=== PATIENT | female | born 1955 | race African-American/Black ===

== ENCOUNTER 2020-06-14 07:26 | Inpatient (IN) | payer BC, OTHER ==
[~2020-06-14] VITALS: Ht 170.2 cm; Wt 78.6 kg
[2020-06-14 10:36] VITALS: BP 124/80
[2020-06-14] MEDS: Heparin 5000 units/ml inj SUBQ SCH ×2 (11:00→21:00)
[2020-06-14 11:25] LABS: APPEARANCE,URINE CLEAR; BILIRUBIN, URINE NEGATIVE (NEGATIVE); COLOR,URINE PALE YELLOW; GLUCOSE, URINE (UA) NEGATIVE (NEGATIVE); KETONES,URINE 1+ (NEGATIVE); LEUKOCYTE ESTERASE ,URINE 1+ (NEGATIVE); NITRITE,URINE NEGATIVE (NEGATIVE); PH,URINE 7 (4.5-8.0); PROTEIN,URINE NEGATIVE (NEGATIVE); UROBILINOGEN,URINE NORMAL MG/DL (0.0-1.0)
[2020-06-14 11:41] LABS: HEMATOCRIT 31.3 % (37.0-47.0); HEMOGLOBIN 10.2 G/DL (12.0-16.0); MEAN CORPUSCULAR VOLUME 87 FL (80-99); PLATELET COUNT 106 K/UL (150-450); RED BLOOD COUNT 3.59 M/UL (4.20-5.40); RED CELL DISTRIBUTION WIDTH 22.4 % (11.6-14.8); WHITE BLOOD COUNT 4.5 K/UL (4.8-10.8)
[2020-06-14 11:43] LABS: ALANINE AMINOTRANSFERASE 47 U/L (12-78); ALBUMIN 3.5 G/DL (3.4-5.0); ALBUMIN/GLOBULIN RATIO 0.8 (1.0-2.7); ALKALINE PHOSPHATASE 123 U/L (46-116); ANION GAP 11 mmol/L (5-15); ASPARTATE AMINO TRANSFERASE 52 U/L (15-37); BILIRUBIN,TOTAL 0.6 MG/DL (0.2-1.0); BLOOD UREA NITROGEN 4 mg/dL (7-18); CALCIUM 8.7 MG/DL (8.5-10.1); CARBON DIOXIDE 24 MMOL/L (21-32); CHLORIDE 90 MMOL/L (98-107); CREATININE 0.7 MG/DL (0.55-1.30); PHOSPHORUS 3.2 MG/DL (2.5-4.9); POTASSIUM 3.6 MMOL/L (3.5-5.1); SODIUM 125 MMOL/L (136-145)
[2020-06-14 12:00] VITALS: BP 126/76
--- NOTE | 2020-06-14 13:43 | Consultation ---
History of Present Illness General Date patient seen: Jun 14, 2020 Present Illness HPI 64 year old female with hx of HTN, was taken to [facility] with CC of seizures. Her initial evaluation revealed severe hyponatremia, contributing to seizures. After initial treatment, she was [place] [facility] [place]. Allergies: Coded Allergies: ASPIRIN (Verified Allergy, Unknown, 08/20/10) CODEINE (Verified Allergy, Unknown, 08/20/10) PENICILLINS (Verified Allergy, Unknown, 08/20/10) Medication History Scheduled Atenolol* (Tenormin*), 100 MG ORAL DAILY Famotidine* (Pepcid 20mg tablet*), 20 MG ORAL BID Patient History Healthcare decision maker Resuscitation status Advanced Directive on File Past Medical/Surgical History Past Medical/Surgical History: (1) History of hypertension (2) Hx of gastric bypass Review of Systems All Other Systems: negative except mentioned in HPI Physical Exam General Appearance: WD/WN Lines, tubes and drains: peripheral HEENT: normocephalic, atraumatic Neck: non-tender, normal alignment Respiratory/Chest: chest wall non-tender, lungs clear, normal breath sounds Breasts: no masses Cardiovascular/Chest: normal peripheral pulses Abdomen: normal bowel sounds Genitourinary/Rectal: normal genital exam Extremities: normal range of motion Skin Exam: normal pigmentation Last 24 Hour Vital Signs Date Time Temp Pulse Resp B/P (MAP) Pulse Ox O2 Delivery O2 Flow Rate FiO2 06/14/20 12:00 98.0 75 18 126/76 (93) 100 06/14/20 10:36 99.2 76 18 124/80 (95) 100 06/14/20 09:31 Room Air Laboratory Tests Test 06/14/20 10:45 06/14/20 11:00 White Blood Count 4.5 K/UL (4.8-10.8) L Red Blood Count 3.59 M/UL (4.20-5.40) L Hemoglobin 10.2 G/DL (12.0-16.0) L Hematocrit 31.3 % (37.0-47.0) L Mean Corpuscular Volume 87 FL (80-99) Mean Corpuscular Hemoglobin 28.5 PG (27.0-31.0) Mean Corpuscular Hemoglobin Concent 32.6 G/DL (32.0-36.0) Red Cell Distribution Width 22.4 % (11.6-14.8) H Platelet Count 106 K/UL (150-450) L Mean Platelet Volume 6.8 FL (6.5-10.1) Neutrophils (%) (Auto) % (45.0-75.0) Lymphocytes (%) (Auto) % (20.0-45.0) Monocytes (%) (Auto) % (1.0-10.0) Eosinophils (%) (Auto) % (0.0-3.0) Basophils (%) (Auto) % (0.0-2.0) Differential Total Cells Counted 100 Neutrophils % (Manual) 81 % (45-75) H Lymphocytes % (Manual) 15 % (20-45) L Monocytes % (Manual) 4 % (1-10) Eosinophils % (Manual) 0 % (0-3) Basophils % (Manual) 0 % (0-2) Band Neutrophils 0 % (0-8) Platelet Estimate Decreased L Platelet Morphology Normal Hypochromasia 1+ Anisocytosis 3+ Sodium Level 125 MMOL/L (136-145) L Potassium Level 3.6 MMOL/L (3.5-5.1) Chloride Level 90 MMOL/L (98-107) L Carbon Dioxide Level 24 MMOL/L (21-32) Anion Gap 11 mmol/L (5-15) Blood Urea Nitrogen 4 mg/dL (7-18) L Creatinine 0.7 MG/DL (0.55-1.30) Estimat Glomerular Filtration Rate > 60 mL/min (>60) Glucose Level 104 MG/DL (74-106) Calcium Level 8.7 MG/DL (8.5-10.1) Phosphorus Level 3.2 MG/DL (2.5-4.9) Magnesium Level 1.8 MG/DL (1.8-2.4) Total Bilirubin 0.6 MG/DL (0.2-1.0) Aspartate Amino Transf (AST/SGOT) 52 U/L (15-37) H Alanine Aminotransferase (ALT/SGPT) 47 U/L (12-78) Alkaline Phosphatase 123 U/L (46-116) H Troponin I 0.000 ng/mL (0.000-0.056) Total Protein 8.0 G/DL (6.4-8.2) Albumin 3.5 G/DL (3.4-5.0) Globulin 4.5 g/dL Albumin/Globulin Ratio 0.8 (1.0-2.7) L Urine Color Pale yellow Urine Appearance Clear Urine pH 7 (4.5-8.0) Urine Specific [place] 1.005 (1.005-1.035) Urine Protein Negative (NEGATIVE) Urine Glucose (UA) Negative (NEGATIVE) Urine Ketones 1+ (NEGATIVE) H Urine Blood Negative (NEGATIVE) Urine Nitrite Negative (NEGATIVE) Urine Bilirubin Negative (NEGATIVE) Urine Urobilinogen Normal MG/DL (0.0-1.0) Urine Leukocyte Esterase 1+ (NEGATIVE) H Urine RBC 0 /HPF (0 - 2) Urine WBC 0-2 /HPF (0 - 2) Urine Squamous Epithelial Cells Occasional /LPF Urine Bacteria Occasional /HPF (NONE) Microbiology Date/Time Source Procedure Growth Status 06/14/20 11:14 Nasopharynx SARS-CoV-2 RdRp Gene Assay - Final Complete Height (Feet): 5 Height (Inches): 7.00 Weight (Pounds): 162 Medications Current Medications Medications (Trade) Dose Ordered Sig/Becky Route PRN Reason Start Time Stop Time Status Last Admin Dose Admin Acetaminophen (Tylenol) 650 mg Q6H PRN ORAL For Headache,fever,mild pain 06/14/20 10:00 07/14/20 09:59 Heparin Sodium (Porcine) (Heparin 5000 units/ml) 5,000 units EVERY 12 HOURS SUBQ 06/14/20 11:00 07/29/20 10:59 Potassium Chloride/Sodium Chloride 1,000 ml @ 75 mls/hr [id number] IV 06/14/20 14:00 07/14/20 13:59 Assessment/Plan Problem List: (1) New onset seizure ICD Codes: R56.9 - Unspecified convulsions SNOMED: 25226520 (2) Acute encephalopathy ICD Codes: G93.40 - Encephalopathy, unspecified SNOMED: 86604234, 597034684 (3) Hyponatremia ICD Codes: E87.1 - Hypo-osmolality and hyponatremia SNOMED: 54621345 Assessment/Plan: NS or 3%S, seizure precaution neuro evaluation hyponatremia w/u check Na in am dvt prophylaxis. Emma Mcfarlane MD Jun 14, 2020 13:43
[2020-06-14] MEDS: NS w/KCl 20mEq 1000ml 1,000 ML IV SCH (13:44)
[2020-06-14] MEDS ORDERED: Nitroglycerin Subl 0.4mg tab SL PRN (13:45)
[2020-06-14] MEDS ORDERED: Miralax 17gm pkt ORAL PRN (13:45)
[2020-06-14] MEDS ORDERED: LORazepam Inj 2mg/ml 1ml IV PRN ×2 (13:45)
[2020-06-14] MEDS ORDERED: Mylanta II UD 30ml ORAL PRN (13:45)
[2020-06-14 15:12] LABS: APPEARANCE,URINE CLEAR; BILIRUBIN, URINE NEGATIVE (NEGATIVE); COLOR,URINE PALE YELLOW; GLUCOSE, URINE (UA) NEGATIVE (NEGATIVE); KETONES,URINE 1+ (NEGATIVE); LEUKOCYTE ESTERASE ,URINE 2+ (NEGATIVE); NITRITE,URINE NEGATIVE (NEGATIVE); PH,URINE 7 (4.5-8.0); PROTEIN,URINE NEGATIVE (NEGATIVE); UROBILINOGEN,URINE NORMAL MG/DL (0.0-1.0)
[2020-06-14 16:00] VITALS: BP 134/71
[2020-06-14 16:23] LABS: ANION GAP 10 mmol/L (5-15); BLOOD UREA NITROGEN 6 mg/dL (7-18); CALCIUM 8.8 MG/DL (8.5-10.1); CARBON DIOXIDE 23 MMOL/L (21-32); CHLORIDE 94 MMOL/L (98-107); CREATININE 0.8 MG/DL (0.55-1.30); POTASSIUM 3.2 MMOL/L (3.5-5.1); SODIUM 127 MMOL/L (136-145)
[2020-06-14] MEDS: Triamterene/Hctz 37.5/25 cap ORAL SCH (17:07)
--- NOTE | 2020-06-14 18:35 | History & Physical ---
History and Physical History & Physicial Dictated for Int Med-Dr Edward no. [id number]. Ramos Lou MD Jun 14, 2020 18:35
--- NOTE | 2020-06-14 19:44 | History and Physical Report ---
DATE OF ADMISSION: 06/14/2020 CHIEF COMPLAINT: Patient is a 64-year-old female, who presents with a chief complaint of seizure. HISTORY OF PRESENT ILLNESS: Patient denies any medical history. Patient apparently had an unwitnessed seizure, which occurred while patient was watching TV. Patient initially presented to [facility] emergency room. Patient is transferred to [facility] for insurance purposes. Patient is admitted with new-onset seizure disorder. REVIEW OF SYSTEMS: Unable to assess secondary to patient's mental status. PAST MEDICAL HISTORY: Patient denies. CURRENT MEDICATIONS: Denies. ALLERGIES: To aspirin, codeine, and penicillin. PAST SURGICAL HISTORY: Patient denies. SOCIAL HISTORY: Patient is a . Patient lives alone. Patient denies tobacco or alcohol use. PHYSICAL EXAMINATION: VITAL SIGNS: Temperature 97.4, respirations 17, pulse 102, blood pressure 139/72. GENERAL: Patient is well-developed, well-nourished female, in no apparent distress. HEENT: Eyes, pupils are equal and responsive to light and accommodation. Extraocular movements are intact. NECK: Supple without lymphadenopathy. CHEST: Lungs are clear to auscultation bilaterally without wheezes or rales. CARDIOVASCULAR: Regular rhythm and rate. S1, S2 are normal without murmurs, rubs, or gallops. ABDOMEN: Soft, nontender, nondistended. Positive bowel sounds. No evidence of hepatosplenomegaly. Currently, no rebound or guarding noted. EXTREMITIES: Negative for clubbing, cyanosis, or edema. RECTAL/GENITAL: Not performed. NEUROLOGICAL: Cranial nerves II through XII grossly intact without focal deficits. Motor strength is 5/5 bilaterally. Deep tendon reflexes are 2+ plantar. LABORATORY STUDIES: WBC 3.8, hemoglobin 10.5, hematocrit 32.0, platelets 118,000. Sodium 120, potassium 3.8, chloride 84, CO2 18, BUN 3, creatinine 0.73, glucose 149. A CT of the brain was reported as no acute masses or hemorrhage. ASSESSMENT: This is a 64-year-old female: 1. New-onset seizure. 2. Hyponatremia. TREATMENT: 1. New-onset seizure. Patient has been placed empirically on intravenous lorazepam for seizure. An initial phenytoin level was negative. A Neurology consultation has been obtained with Dr. Andre Sesay. 2. Hyponatremia. Reason for hyponatremia is unknown. Patient has been started empirically on normal saline intravenously. We will follow recommendations of Nephrology, Dr. Villa. Ramos Lou M.D. DR: CARLOS JOB#: [id number] CC:
[2020-06-14 20:00] VITALS: BP 127/76
[2020-06-14 23:48] VITALS: BP 128/73
[2020-06-15 04:00] VITALS: BP 132/70
[2020-06-15] MEDS: NS w/KCl 20mEq 1000ml 1,000 ML IV SCH ×2 (05:30→15:48)
[2020-06-15 07:15] LABS: HEMATOCRIT 29.3 % (37.0-47.0); HEMOGLOBIN 9.5 G/DL (12.0-16.0); MEAN CORPUSCULAR VOLUME 89 FL (80-99); PLATELET COUNT 85 K/UL (150-450); RED BLOOD COUNT 3.29 M/UL (4.20-5.40); RED CELL DISTRIBUTION WIDTH 22.6 % (11.6-14.8); WHITE BLOOD COUNT 4.1 K/UL (4.8-10.8)
[2020-06-15 07:20] LABS: ALANINE AMINOTRANSFERASE 41 U/L (12-78); ALBUMIN 3.3 G/DL (3.4-5.0); ALBUMIN/GLOBULIN RATIO 0.8 (1.0-2.7); ALKALINE PHOSPHATASE 101 U/L (46-116); ANION GAP 10 mmol/L (5-15); ASPARTATE AMINO TRANSFERASE 82 U/L (15-37); BILIRUBIN,TOTAL 0.5 MG/DL (0.2-1.0); BLOOD UREA NITROGEN 5 mg/dL (7-18); CALCIUM 8.2 MG/DL (8.5-10.1); CARBON DIOXIDE 23 MMOL/L (21-32); CHLORIDE 100 MMOL/L (98-107); CREATININE 0.7 MG/DL (0.55-1.30); POTASSIUM 3.6 MMOL/L (3.5-5.1); SODIUM 132 MMOL/L (136-145)
[2020-06-15 08:00] VITALS: BP 117/79
[2020-06-15] MEDS: Heparin 5000 units/ml inj SUBQ SCH ×2 (08:16→21:00)
[2020-06-15] MEDS: Triamterene/Hctz 37.5/25 cap ORAL SCH (08:16)
[2020-06-15 12:07] VITALS: BP 127/52
--- NOTE | 2020-06-15 13:28 | Pulmonology Progress Note ---
Subjective ROS Limited/Unobtainable: No Constitutional: Reports: no symptoms HEENT: Repors: no symptoms Respiratory: Reports: no symptoms Allergies: Coded Allergies: ASPIRIN (Verified Allergy, Unknown, 08/20/10) CODEINE (Verified Allergy, Unknown, 08/20/10) PENICILLINS (Verified Allergy, Unknown, 08/20/10) Objective Last 24 Hour Vital Signs Date Time Temp Pulse Resp B/P (MAP) Pulse Ox O2 Delivery O2 Flow Rate FiO2 06/15/20 12:07 98.1 84 17 127/52 (77) 97 06/15/20 09:00 Room Air 06/15/20 08:16 84 117/79 06/15/20 08:00 98.1 84 17 117/79 (92) 97 06/15/20 04:00 98.7 88 20 132/70 (90) 97 06/14/20 23:48 98.1 83 20 128/73 (91) 99 06/14/20 21:00 Room Air 06/14/20 20:00 98.1 80 20 127/76 (93) 100 06/14/20 17:07 81 134/71 06/14/20 16:00 98.5 81 20 134/71 (92) 100 Intake and Output 06/14/20 06/15/20 19:00 07:00 Intake Total 300 ml 1650 ml Balance 300 ml 1650 ml Intake Oral 1200 ml IV Total 300 ml 450 ml # Voids 4 # Bowel Movements 3 General Appearance: WD/WN HEENT: normocephalic, atraumatic Respiratory: lungs clear, normal breath sounds Breasts: no masses Cardiovascular: regular rhythm Abdomen: normal bowel sounds, soft, non tender Genitourinary: normal external genitalia Extremities: no clubbing Skin: no rash Microbiology Date/Time Source Procedure Growth Status 06/14/20 11:14 Nasopharynx SARS-CoV-2 RdRp Gene Assay - Final Complete Laboratory Tests 06/14/20 14:00: Urine Color Pale yellow, Urine Appearance Clear, Urine pH 7, Urine Specific [place] 1.005, Urine Protein Negative, Urine Glucose (UA) Negative, Urine Ketones 1+H, Urine Blood Negative, Urine Nitrite Negative, Urine Bilirubin Negative, Urine Urobilinogen Normal, Urine Leukocyte Esterase 2+H, Urine RBC 0-2 , Urine WBC 2-4, Urine Squamous Epithelial Cells Occasional, Urine Bacteria Occasional, Urine Osmolality 151L, Urine Random Sodium 50 06/14/20 15:45: Sodium Level 127L, Potassium Level 3.2L, Chloride Level 94L, Carbon Dioxide Level 23, Anion Gap 10, Blood Urea Nitrogen 6L, Creatinine 0.8, Estimat Glomerular Filtration Rate > 60, Glucose Level 109H, Calcium Level 8.8 06/15/20 06:10: Sodium Level 132L, Potassium Level 3.6, Chloride Level 100, Carbon Dioxide Level 23, Anion Gap 10, Blood Urea Nitrogen 5L, Creatinine 0.7, Estimat Glomerular Filtration Rate > 60, Glucose Level 93, Calcium Level 8.2L, White Blood Count 4.1L, Red Blood Count 3.29L, Hemoglobin 9.5L, Hematocrit 29.3L, Mean Corpuscular Volume 89, Mean Corpuscular Hemoglobin 28.8, Mean Corpuscular Hemoglobin Concent 32.4, Red Cell Distribution Width 22.6H, Platelet Count 85L, Mean Platelet Volume 6.7, Neutrophils (%) (Auto) , Lymphocytes (%) (Auto) , Monocytes (%) (Auto) , Eosinophils (%) (Auto) , Basophils (%) (Auto) , Differential Total Cells Counted 100, Neutrophils % (Manual) 53, Lymphocytes % ( Manual) 38, Monocytes % (Manual) 6, Eosinophils % (Manual) 3, Basophils % ( Manual) 0, Band Neutrophils 0, Platelet Estimate DecreasedL, Platelet Morphology Normal, Hypochromasia 2+, Anisocytosis 3+, Magnesium Level 1.9, Total Bilirubin 0.5, Aspartate Amino Transf (AST/SGOT) 82H, Alanine Aminotransferase (ALT/SGPT) 41, Alkaline Phosphatase 101, Total Protein 7.4, Albumin 3.3L, Globulin 4.1, Albumin/Globulin Ratio 0.8L Current Medications Medications (Trade) Dose Ordered Sig/Becky Route PRN Reason Start Time Stop Time Status Last Admin Dose Admin Acetaminophen (Tylenol) 650 mg Q4H PRN ORAL Temp >100.5 06/14/20 13:45 07/14/20 13:44 Acetaminophen (Tylenol) 650 mg Q6H PRN ORAL headache & mild pain 06/14/20 14:00 07/14/20 09:59 06/14/20 18:01 Al Hydroxide/Mg Hydroxide (Mylanta II) 30 ml Q6H PRN ORAL Dyspepsia 06/14/20 13:45 07/14/20 13:44 Atenolol (Tenormin) 100 mg DAILY ORAL 06/14/20 14:45 07/14/20 14:44 06/15/20 08:16 Diphenhydramine HCl (Benadryl) 25 mg Q6H PRN ORAL Itching/Pruritis 06/14/20 13:45 07/14/20 13:44 Famotidine (Pepcid) 20 mg BID ORAL 06/14/20 18:00 09/12/20 17:59 06/15/20 08:16 Heparin Sodium (Porcine) (Heparin 5000 units/ml) 5,000 units EVERY 12 HOURS SUBQ 06/14/20 11:00 07/29/20 10:59 Loperamide HCl (Imodium) 4 mg Q4H PRN ORAL Diarrhea 06/14/20 13:45 07/14/20 13:44 Lorazepam (Ativan 2mg/ml 1ml) 0.5 mg Q4H PRN IV For Anxiety 06/14/20 13:45 06/21/20 13:44 Lorazepam (Ativan 2mg/ml 1ml) 1 mg Q4H PRN IV seizures 06/14/20 13:45 06/21/20 13:44 Morphine Sulfate (Morphine Sulfate) 2 mg Q6H PRN IVP Moderate Pain (Pain Scale 4-6) 06/14/20 13:46 06/21/20 13:45 Nitroglycerin (Ntg) 0.4 mg Q5M PRN SL Prn Chest Pain 06/14/20 13:45 07/14/20 13:44 Ondansetron HCl (Zofran) 4 mg Q6H PRN IVP Nausea & Vomiting 06/14/20 13:45 07/14/20 13:44 06/14/20 17:06 Polyethylene Glycol (Miralax) 17 gm DAILYPRN PRN ORAL Constipation 06/14/20 13:45 07/14/20 13:44 Potassium Chloride/Sodium Chloride 1,000 ml @ 75 mls/hr [id number] IV 06/14/20 14:00 07/14/20 13:59 06/15/20 05:30 Temazepam (Restoril) 15 mg HSPRN PRN ORAL Insomnia 06/14/20 13:45 06/21/20 13:44 06/14/20 22:56 Triamterene/HCTZ (Dyazide) 1 cap DAILY ORAL 06/14/20 14:45 07/14/20 14:44 06/15/20 08:16 Assessment/Plan Problems: (1) New onset seizure (2) Acute encephalopathy (3) Hyponatremia (4) Anemia Assessment/Plan feels better today Na is better seizure precaution neuro evaluation hyponatremia w/u check Na in am dvt prophylaxis. Emma Mcfarlane MD Jun 15, 2020 13:28
[2020-06-15 16:00] VITALS: BP 125/62
[2020-06-15 17:06] LABS: LACTATE DEHYDROGENASE 408 U/L (81-234)
[2020-06-15 17:45] LABS: % IRON SATURATION 8 % (15-50); IRON 27 ug/dL (50-175); TOTAL IRON BINDING CAPACITY 338 ug/dL (250-450)
--- NOTE | 2020-06-15 19:58 | Internal Med Progress Note ---
Subjective Physician Name Orville Edward Attending Physician Orville Edward MD Current Medications Medications (Trade) Dose Ordered Sig/Becky Route PRN Reason Start Time Stop Time Status Last Admin Dose Admin Acetaminophen (Tylenol) 650 mg Q4H PRN ORAL Temp >100.5 06/14/20 13:45 07/14/20 13:44 Acetaminophen (Tylenol) 650 mg Q6H PRN ORAL headache & mild pain 06/14/20 14:00 07/14/20 09:59 06/14/20 18:01 Al Hydroxide/Mg Hydroxide (Mylanta II) 30 ml Q6H PRN ORAL Dyspepsia 06/14/20 13:45 07/14/20 13:44 Atenolol (Tenormin) 100 mg DAILY ORAL 06/14/20 14:45 07/14/20 14:44 06/15/20 08:16 Diphenhydramine HCl (Benadryl) 25 mg Q6H PRN ORAL Itching/Pruritis 06/14/20 13:45 07/14/20 13:44 Famotidine (Pepcid) 20 mg BID ORAL 06/14/20 18:00 09/12/20 17:59 06/15/20 17:29 Heparin Sodium (Porcine) (Heparin 5000 units/ml) 5,000 units EVERY 12 HOURS SUBQ 06/14/20 11:00 07/29/20 10:59 Loperamide HCl (Imodium) 4 mg Q4H PRN ORAL Diarrhea 06/14/20 13:45 07/14/20 13:44 Lorazepam (Ativan 2mg/ml 1ml) 0.5 mg Q4H PRN IV For Anxiety 06/14/20 13:45 06/21/20 13:44 Lorazepam (Ativan 2mg/ml 1ml) 1 mg Q4H PRN IV seizures 06/14/20 13:45 06/21/20 13:44 Morphine Sulfate (Morphine Sulfate) 2 mg Q6H PRN IVP Moderate Pain (Pain Scale 4-6) 06/14/20 13:46 06/21/20 13:45 Nitroglycerin (Ntg) 0.4 mg Q5M PRN SL Prn Chest Pain 06/14/20 13:45 07/14/20 13:44 Ondansetron HCl (Zofran) 4 mg Q6H PRN IVP Nausea & Vomiting 06/14/20 13:45 07/14/20 13:44 06/14/20 17:06 Polyethylene Glycol (Miralax) 17 gm DAILYPRN PRN ORAL Constipation 06/14/20 13:45 07/14/20 13:44 Potassium Chloride/Sodium Chloride 1,000 ml @ 75 mls/hr [id number] IV 06/14/20 14:00 07/14/20 13:59 06/15/20 15:48 Temazepam (Restoril) 15 mg HSPRN PRN ORAL Insomnia 06/14/20 13:45 06/21/20 13:44 06/14/20 22:56 Triamterene/HCTZ (Dyazide) 1 cap DAILY ORAL 06/14/20 14:45 07/14/20 14:44 06/15/20 08:16 Allergies: Coded Allergies: ASPIRIN (Verified Allergy, Unknown, 08/20/10) CODEINE (Verified Allergy, Unknown, 08/20/10) PENICILLINS (Verified Allergy, Unknown, 08/20/10) Subjective awake, alert, responsive, complaining about generalized abdominal tenderness, WBC: 4.1, platelet: 8.5, sodium: 132. Objective Last Vital Signs Date Time Temp Pulse Resp B/P (MAP) Pulse Ox O2 Delivery O2 Flow Rate FiO2 06/15/20 16:00 98.6 80 18 125/62 (83) 98 06/15/20 09:00 Room Air Laboratory Tests Test 06/15/20 06:10 06/15/20 16:15 White Blood Count 4.1 K/UL (4.8-10.8) L Red Blood Count 3.29 M/UL (4.20-5.40) L Hemoglobin 9.5 G/DL (12.0-16.0) L Hematocrit 29.3 % (37.0-47.0) L Mean Corpuscular Volume 89 FL (80-99) Mean Corpuscular Hemoglobin 28.8 PG (27.0-31.0) Mean Corpuscular Hemoglobin Concent 32.4 G/DL (32.0-36.0) Red Cell Distribution Width 22.6 % (11.6-14.8) H Platelet Count 85 K/UL (150-450) L Mean Platelet Volume 6.7 FL (6.5-10.1) Neutrophils (%) (Auto) % (45.0-75.0) Lymphocytes (%) (Auto) % (20.0-45.0) Monocytes (%) (Auto) % (1.0-10.0) Eosinophils (%) (Auto) % (0.0-3.0) Basophils (%) (Auto) % (0.0-2.0) Differential Total Cells Counted 100 Neutrophils % (Manual) 53 % (45-75) Lymphocytes % (Manual) 38 % (20-45) Monocytes % (Manual) 6 % (1-10) Eosinophils % (Manual) 3 % (0-3) Basophils % (Manual) 0 % (0-2) Band Neutrophils 0 % (0-8) Platelet Estimate Decreased L Platelet Morphology Normal Hypochromasia 2+ Anisocytosis 3+ Sodium Level 132 MMOL/L (136-145) L Potassium Level 3.6 MMOL/L (3.5-5.1) Chloride Level 100 MMOL/L (98-107) Carbon Dioxide Level 23 MMOL/L (21-32) Anion Gap 10 mmol/L (5-15) Blood Urea Nitrogen 5 mg/dL (7-18) L Creatinine 0.7 MG/DL (0.55-1.30) Estimat Glomerular Filtration Rate > 60 mL/min (>60) Glucose Level 93 MG/DL (74-106) Calcium Level 8.2 MG/DL (8.5-10.1) L Magnesium Level 1.9 MG/DL (1.8-2.4) Total Bilirubin 0.5 MG/DL (0.2-1.0) Aspartate Amino Transf (AST/SGOT) 82 U/L (15-37) H Alanine Aminotransferase (ALT/SGPT) 41 U/L (12-78) Alkaline Phosphatase 101 U/L (46-116) Total Protein 7.4 G/DL (6.4-8.2) Albumin 3.3 G/DL (3.4-5.0) L Globulin 4.1 g/dL Albumin/Globulin Ratio 0.8 (1.0-2.7) L Erythrocyte Sedimentation Rate 40 MM/HR (0-30) H Reticulocyte Count Pending Prothrombin Time 11.0 SEC (9.30-11.50) Prothromb Time International Ratio 1.0 (0.9-1.1) Activated Partial Thromboplast Time 23 SEC (23-33) Iron Level 27 ug/dL (50-175) L Total Iron Binding Capacity 338 ug/dL (250-450) Percent Iron Saturation 8 % (15-50) L Unsaturated Iron Binding 311 ug/dL (112-346) Lactate Dehydrogenase 408 U/L (81-234) H Carcinoembryonic Antigen Pending Vitamin B12 Level 189 PG/ML (193-986) L Folate 29.6 NG/ML (8.6-58.9) Microbiology Date/Time Source Procedure Growth Status 06/14/20 11:14 Nasopharynx SARS-CoV-2 RdRp Gene Assay - Final Complete Intake and Output 06/14/20 06/15/20 19:00 07:00 Intake Total 300 ml 1650 ml Balance 300 ml 1650 ml Intake Oral 1200 ml IV Total 300 ml 450 ml # Voids 4 # Bowel Movements 3 Objective General: No acute distress, awake and alert HEENT: NCAT, sclera anicteric, PERRL, EOMI. Neck: Supple, no significant jugular venous distention, Lungs: Good inspiratory effort, no accessory muscle use, clear to auscultation bilaterally, no Wheeze or Rales. Heart: Regular rate and rhythm, normal S1/S2, no murmurs/gallops Abdomen: soft, generalized tenderness, nondistended. Normoactive bowel sounds. / Rectal: Refused and deferred. Extremities: No Cyanosis , clubbing or edema. Neuro: A&O x 3, Able to move all extremities Skin: warm, no rashes or lesions Psych: Normal mood and affect Assessment/Plan Assessment/Plan 1. New-onset seizure. 2. Hyponatremia. 3. iron deficiency anemia. 4. Pancytopenia. 5. Generalized abdominal tenderness. TREATMENT: 1. New-onset seizure. Patient has been placed empirically on intravenous lorazepam for seizure. An initial phenytoin level was negative. A Neurology consultation has been obtained with Dr. Andre Sesay. 2. Hyponatremia. Reason for hyponatremia is unknown. Patient has been started empirically on normal saline intravenously. We will follow recommendations of Nephrology, Dr. Villa. start Venofer IV. GI consultation with Dr. Abebe Consider CT scan of the abdomen. monitor laboratory in a.m. IV fluid at 75 cc/hr. Orville Edward MD Jun 15, 2020 19:58
[2020-06-15 20:00] VITALS: BP 127/86
[2020-06-15] MEDS ORDERED: Omnipaque-300 100ml vial INJ PRN (20:00)
[2020-06-15] MEDS ORDERED: Isovue-300 100ml vial INJ PRN (20:00)
[2020-06-15 20:42] LABS: ANION GAP 12 mmol/L (5-15); BLOOD UREA NITROGEN 8 mg/dL (7-18); CARBON DIOXIDE 21 MMOL/L (21-32); CHLORIDE 99 MMOL/L (98-107); CREATININE 0.9 MG/DL (0.55-1.30); POTASSIUM 3.8 MMOL/L (3.5-5.1); SODIUM 132 MMOL/L (136-145)
[2020-06-15] MEDS: Iron Sucrose 100 MG in NS 55 ML IV SCH (21:00)
[2020-06-15 23:54] VITALS: BP 122/69
[2020-06-16 04:00] VITALS: BP 125/72
[2020-06-16] MEDS: NS w/KCl 20mEq 1000ml 1,000 ML IV SCH ×2 (06:30→20:26)
[2020-06-16 07:34] LABS: HEMATOCRIT 30.2 % (37.0-47.0); HEMOGLOBIN 9.5 G/DL (12.0-16.0); MEAN CORPUSCULAR VOLUME 92 FL (80-99); PLATELET COUNT 88 K/UL (150-450); RED BLOOD COUNT 3.29 M/UL (4.20-5.40); RED CELL DISTRIBUTION WIDTH 24.6 % (11.6-14.8); WHITE BLOOD COUNT 4.5 K/UL (4.8-10.8)
[2020-06-16 08:00] VITALS: BP 122/75
[2020-06-16] MEDS: Triamterene/Hctz 37.5/25 cap ORAL SCH (08:53)
[2020-06-16] MEDS: Heparin 5000 units/ml inj SUBQ SCH ×2 (08:54→20:27)
--- NOTE | 2020-06-16 09:17 | Pulmonology Progress Note ---
Subjective ROS Limited/Unobtainable: No Constitutional: Reports: no symptoms HEENT: Repors: no symptoms Respiratory: Reports: no symptoms Allergies: Coded Allergies: ASPIRIN (Verified Allergy, Unknown, 08/20/10) CODEINE (Verified Allergy, Unknown, 08/20/10) PENICILLINS (Verified Allergy, Unknown, 08/20/10) Objective Last 24 Hour Vital Signs Date Time Temp Pulse Resp B/P (MAP) Pulse Ox O2 Delivery O2 Flow Rate FiO2 06/16/20 08:54 81 122/75 06/16/20 08:00 98.3 81 18 122/75 (91) 98 06/16/20 04:00 98.1 84 18 125/72 (89) 98 06/15/20 23:54 97.9 86 18 122/69 (86) 98 06/15/20 20:56 Room Air 06/15/20 20:00 97.2 82 20 127/86 (100) 96 06/15/20 16:00 98.6 80 18 125/62 (83) 98 06/15/20 12:07 98.1 84 17 127/52 (77) 97 Intake and Output 06/15/20 06/16/20 19:00 07:00 Intake Total 950 ml 735 ml Balance 950 ml 735 ml Intake Oral 800 ml IV Total 150 ml 735 ml # Voids 2 1 General Appearance: WD/WN HEENT: normocephalic, atraumatic Respiratory: lungs clear, normal breath sounds Breasts: no masses Cardiovascular: regular rhythm Abdomen: normal bowel sounds, soft, non tender Genitourinary: normal external genitalia Extremities: no clubbing Skin: no rash Microbiology Date/Time Source Procedure Growth Status 06/14/20 11:14 Nasopharynx SARS-CoV-2 RdRp Gene Assay - Final Complete 06/14/20 11:00 Nasal Nares MRSA Culture - Final NO METHICILLIN RESISTANT STAPH AUREUS... Complete Laboratory Tests 06/15/20 16:15: Erythrocyte Sedimentation Rate 40H, Reticulocyte Count 1.3, Prothrombin Time 11.0, Prothromb Time International Ratio 1.0, Activated Partial Thromboplast Time 23, Iron Level 27L, Total Iron Binding Capacity 338, Percent Iron Saturation 8L, Unsaturated Iron Binding 311, Lactate Dehydrogenase 408H, Carcinoembryonic Antigen 3.3, Vitamin B12 Level 189L, Folate 29.6 06/15/20 20:13: Sodium Level 132L, Potassium Level 3.8, Chloride Level 99, Carbon Dioxide Level 21, Anion Gap 12, Blood Urea Nitrogen 8, Creatinine 0.9, Estimat Glomerular Filtration Rate > 60, Glucose Level 105, Calcium Level 9.0 06/16/20 05:50: White Blood Count 4.5L, Red Blood Count 3.29L, Hemoglobin 9.5L, Hematocrit 30.2L , Mean Corpuscular Volume 92, Mean Corpuscular Hemoglobin 28.9, Mean Corpuscular Hemoglobin Concent 31.6L, Red Cell Distribution Width 24.6H, Platelet Count 88L, Mean Platelet Volume 5.7L, Neutrophils (%) (Auto) , Lymphocytes (%) (Auto) , Monocytes (%) (Auto) , Eosinophils (%) (Auto) , Basophils (%) (Auto) , Neutrophils % (Manual) [Pending], Lymphocytes % (Manual) [Pending], Platelet Estimate [Pending], Platelet Morphology [Pending], Magnesium Level 1.9 Current Medications Medications (Trade) Dose Ordered Sig/Becky Route PRN Reason Start Time Stop Time Status Last Admin Dose Admin Acetaminophen (Tylenol) 650 mg Q4H PRN ORAL Temp >100.5 06/14/20 13:45 07/14/20 13:44 Acetaminophen (Tylenol) 650 mg Q6H PRN ORAL headache & mild pain 06/14/20 14:00 07/14/20 09:59 06/14/20 18:01 Al Hydroxide/Mg Hydroxide (Mylanta II) 30 ml Q6H PRN ORAL Dyspepsia 06/14/20 13:45 07/14/20 13:44 Atenolol (Tenormin) 100 mg DAILY ORAL 06/14/20 14:45 07/14/20 14:44 06/16/20 08:54 Barium Sulfate (Readi-Cat 2) 450 ml NOW PRN ORAL Radiology Procedure 06/15/20 20:00 06/17/20 19:48 Diphenhydramine HCl (Benadryl) 25 mg Q6H PRN ORAL Itching/Pruritis 06/14/20 13:45 07/14/20 13:44 Famotidine (Pepcid) 20 mg BID ORAL 06/14/20 18:00 09/12/20 17:59 06/16/20 08:53 Heparin Sodium (Porcine) (Heparin 5000 units/ml) 5,000 units EVERY 12 HOURS SUBQ 06/14/20 11:00 07/29/20 10:59 Iohexol (OMNIPAQUE-300 100ml) 100 ml NOW PRN INJ Radiology Procedure 06/15/20 20:00 06/17/20 19:48 Iopamidol (Isovue-300 100ml) 100 ml NOW PRN INJ Radiology Procedure 06/15/20 20:00 06/17/20 19:59 Iron Sucrose 100 mg/Sodium Chloride 60 ml @ 240 mls/hr BEDTIME IV 06/15/20 21:00 06/19/20 21:14 06/15/20 21:00 Loperamide HCl (Imodium) 4 mg Q4H PRN ORAL Diarrhea 06/14/20 13:45 07/14/20 13:44 Lorazepam (Ativan 2mg/ml 1ml) 0.5 mg Q4H PRN IV For Anxiety 06/14/20 13:45 06/21/20 13:44 Lorazepam (Ativan 2mg/ml 1ml) 1 mg Q4H PRN IV seizures 06/14/20 13:45 06/21/20 13:44 Morphine Sulfate (Morphine Sulfate) 2 mg Q6H PRN IVP Moderate Pain (Pain Scale 4-6) 06/14/20 13:46 06/21/20 13:45 Nitroglycerin (Ntg) 0.4 mg Q5M PRN SL Prn Chest Pain 06/14/20 13:45 07/14/20 13:44 Ondansetron HCl (Zofran) 4 mg Q6H PRN IVP Nausea & Vomiting 06/14/20 13:45 07/14/20 13:44 06/14/20 17:06 Polyethylene Glycol (Miralax) 17 gm DAILYPRN PRN ORAL Constipation 06/14/20 13:45 07/14/20 13:44 Potassium Chloride/Sodium Chloride 1,000 ml @ 75 mls/hr [id number] IV 06/14/20 14:00 07/14/20 13:59 06/16/20 06:30 Temazepam (Restoril) 15 mg HSPRN PRN ORAL Insomnia 06/14/20 13:45 06/21/20 13:44 06/14/20 22:56 Triamterene/HCTZ (Dyazide) 1 cap DAILY ORAL 06/14/20 14:45 07/14/20 14:44 06/16/20 08:53 Assessment/Plan Problems: (1) New onset seizure (2) Acute encephalopathy (3) Hyponatremia (4) Anemia Assessment/Plan feels better today Na is better today at 132 seizure precaution neuro evaluation hyponatremia w/u check Na in am dvt prophylaxis. awaiting neuro evaluation Emma Mcfarlane MD Jun 16, 2020 09:17
[2020-06-16 11:15] LABS: ALANINE AMINOTRANSFERASE 42 U/L (12-78); ALBUMIN 3.3 G/DL (3.4-5.0); ALBUMIN/GLOBULIN RATIO 0.8 (1.0-2.7); ALKALINE PHOSPHATASE 90 U/L (46-116); ANION GAP 14 mmol/L (5-15); ASPARTATE AMINO TRANSFERASE 115 U/L (15-37); BILIRUBIN,TOTAL 0.3 MG/DL (0.2-1.0); BLOOD UREA NITROGEN 7 mg/dL (7-18); CARBON DIOXIDE 18 MMOL/L (21-32); CHLORIDE 101 MMOL/L (98-107); CREATININE 0.7 MG/DL (0.55-1.30); FERRITIN 87 NG/ML (8-388); PHOSPHORUS 3.1 MG/DL (2.5-4.9); POTASSIUM 3.7 MMOL/L (3.5-5.1); SODIUM 133 MMOL/L (136-145)
--- NOTE | 2020-06-16 11:38 | Diagnostic Imaging Report ---
EXAM: CT Head Without and With Intravenous Contrast CLINICAL HISTORY: SZ TECHNIQUE: Axial computed tomography images of the head/brain without and with intravenous contrast. CTDI is 53.4 mGy and DLP is 1018.8 mGy-cm. One or more of the following dose reduction techniques were used: automated exposure control, adjustment of the mA and/or kV according to patient size, use of iterative reconstruction technique. COMPARISON: None FINDINGS: Brain: No acute infarct or hemorrhage. No extra-axial fluid collection. No mass effect or midline shift. Mild calcifications in the basal ganglia. No abnormal enhancement identified. Ventricles and sulci: Normal. No ventriculomegaly or intraventricular hemorrhage. Bones: Mild hyperostosis frontalis interna. No bony lesion or fracture. Subcutaneous tissues: Normal. Sinuses: Normal. No air-fluid levels or mucosal thickening. Mastoid air cells: Normal. Orbits: Grossly unremarkable. IMPRESSION: No acute intracranial abnormality.
--- NOTE | 2020-06-16 11:44 | Diagnostic Imaging Report ---
EXAM: CT Abdomen With Intravenous Contrast CLINICAL HISTORY: ABD PAIN TECHNIQUE: Axial computed tomography images of the abdomen with intravenous contrast. CTDI is 9 mGy and DLP is 407.30 mGy-cm. One or more of the following dose reduction techniques were used: automated exposure control, adjustment of the mA and/or kV according to patient size, use of iterative reconstruction technique. COMPARISON: None FINDINGS: Lung bases: Mild bibasilar atelectasis. Small punctate calcified granuloma in the right lower lobe. Mediastinum: Mild prominence of the wall of the distal esophagus could represent esophagitis. Small hiatal hernia. Liver: Unremarkable. No mass. Gallbladder and bile ducts: Unremarkable. No calcified stones. No ductal dilation. Pancreas: Unremarkable. No mass. No ductal dilation. Spleen: Unremarkable. No splenomegaly. Adrenals: Unremarkable. No mass. Kidneys and ureters: Left renal cyst. No hydronephrosis or visualized obstructing stone. Stomach and bowel: Mildly prominent fluid and gas-filled small bowel loops are nonspecific but could represent enteritis or ileus in the appropriate clinical setting. Diverticulosis without visualized diverticulitis. Gastric bypass changes. Decompressed stomach limits evaluation. No obstruction. Appendix: Prominence appendix, measuring up to approximately 9 mm at the tip of the appendix. No evidence of associated fat stranding to suggest acute appendicitis. Intraperitoneal space: Unremarkable. No free air. No significant fluid collection. Bones/joints: Degenerative changes of the spine. No acute fracture. No dislocation. Soft tissues: Small fat-containing ventral hernias. Vasculature: Unremarkable. No abdominal aortic aneurysm. Lymph nodes: Unremarkable. No enlarged lymph nodes. IMPRESSION: 1. Mildly prominent fluid and gas-filled small bowel loops are nonspecific but could represent enteritis or ileus in the appropriate clinical setting. 2. Mild prominence of the wall of the distal esophagus could represent esophagitis. Small hiatal hernia. 3. Prominence appendix, measuring up to approximately 9 mm at the tip of the appendix. No evidence of associated fat stranding to suggest acute appendicitis.
[2020-06-16 12:00] VITALS: BP 130/76
--- NOTE | 2020-06-16 12:50 | Internal Med Progress Note ---
Subjective Date of Service: Jun 16, 2020 Physician Name DashaRamos Attending Physician Orville Edward MD Current Medications Medications (Trade) Dose Ordered Sig/Becky Route PRN Reason Start Time Stop Time Status Last Admin Dose Admin Acetaminophen (Tylenol) 650 mg Q4H PRN ORAL Temp >100.5 06/14/20 13:45 07/14/20 13:44 Acetaminophen (Tylenol) 650 mg Q6H PRN ORAL headache & mild pain 06/14/20 14:00 07/14/20 09:59 06/14/20 18:01 Al Hydroxide/Mg Hydroxide (Mylanta II) 30 ml Q6H PRN ORAL Dyspepsia 06/14/20 13:45 07/14/20 13:44 Atenolol (Tenormin) 100 mg DAILY ORAL 06/14/20 14:45 07/14/20 14:44 06/16/20 08:54 Barium Sulfate (Readi-Cat 2) 450 ml NOW PRN ORAL Radiology Procedure 06/15/20 20:00 06/17/20 19:48 Diphenhydramine HCl (Benadryl) 25 mg Q6H PRN ORAL Itching/Pruritis 06/14/20 13:45 07/14/20 13:44 Famotidine (Pepcid) 20 mg BID ORAL 06/14/20 18:00 09/12/20 17:59 06/16/20 08:53 Heparin Sodium (Porcine) (Heparin 5000 units/ml) 5,000 units EVERY 12 HOURS SUBQ 06/14/20 11:00 07/29/20 10:59 Iohexol (OMNIPAQUE-300 100ml) 100 ml NOW PRN INJ Radiology Procedure 06/15/20 20:00 06/17/20 19:48 Iopamidol (Isovue-300 100ml) 100 ml NOW PRN INJ Radiology Procedure 06/15/20 20:00 06/17/20 19:59 Iron Sucrose 100 mg/Sodium Chloride 60 ml @ 240 mls/hr BEDTIME IV 06/15/20 21:00 06/19/20 21:14 06/15/20 21:00 Loperamide HCl (Imodium) 4 mg Q4H PRN ORAL Diarrhea 06/14/20 13:45 07/14/20 13:44 Lorazepam (Ativan 2mg/ml 1ml) 0.5 mg Q4H PRN IV For Anxiety 06/14/20 13:45 06/21/20 13:44 Lorazepam (Ativan 2mg/ml 1ml) 1 mg Q4H PRN IV seizures 06/14/20 13:45 06/21/20 13:44 Morphine Sulfate (Morphine Sulfate) 2 mg Q6H PRN IVP Moderate Pain (Pain Scale 4-6) 06/14/20 13:46 06/21/20 13:45 Nitroglycerin (Ntg) 0.4 mg Q5M PRN SL Prn Chest Pain 06/14/20 13:45 07/14/20 13:44 Ondansetron HCl (Zofran) 4 mg Q6H PRN IVP Nausea & Vomiting 06/14/20 13:45 07/14/20 13:44 06/14/20 17:06 Polyethylene Glycol (Miralax) 17 gm DAILYPRN PRN ORAL Constipation 06/14/20 13:45 07/14/20 13:44 Potassium Chloride/Sodium Chloride 1,000 ml @ 75 mls/hr [id number] IV 06/14/20 14:00 07/14/20 13:59 06/16/20 06:30 Temazepam (Restoril) 15 mg HSPRN PRN ORAL Insomnia 06/14/20 13:45 06/21/20 13:44 06/14/20 22:56 Triamterene/HCTZ (Dyazide) 1 cap DAILY ORAL 06/14/20 14:45 07/14/20 14:44 06/16/20 08:53 Allergies: Coded Allergies: ASPIRIN (Verified Allergy, Unknown, 08/20/10) CODEINE (Verified Allergy, Unknown, 08/20/10) PENICILLINS (Verified Allergy, Unknown, 08/20/10) ROS Limited/Unobtainable: No Constitutional: Reports: no symptoms HEENT: Reports: no symptoms Cardiovascular: Reports: no symptoms Respiratory: Reports: no symptoms Gastrointestinal/Abdominal: Reports: no symptoms Genitourinary: Reports: no symptoms Neurologic/Psychiatric: Reports: no symptoms Subjective 64 YO F admitted with new onset seizure. Now hyponatremia and anemia. Cover for Int Darrick Edward Objective Last Vital Signs Date Time Temp Pulse Resp B/P (MAP) Pulse Ox O2 Delivery O2 Flow Rate FiO2 06/16/20 09:00 Room Air 06/16/20 08:54 81 122/75 06/16/20 08:00 98.3 18 98 Laboratory Tests Test 06/15/20 16:15 06/15/20 20:13 06/16/20 05:50 06/16/20 09:51 Erythrocyte Sedimentation Rate 40 MM/HR (0-30) H Reticulocyte Count 1.3 % (0.5-2.0) Prothrombin Time 11.0 SEC (9.30-11.50) Prothromb Time International Ratio 1.0 (0.9-1.1) Activated Partial Thromboplast Time 23 SEC (23-33) Iron Level 27 ug/dL (50-175) L Total Iron Binding Capacity 338 ug/dL (250-450) Percent Iron Saturation 8 % (15-50) L Unsaturated Iron Binding 311 ug/dL (112-346) Lactate Dehydrogenase 408 U/L (81-234) H Carcinoembryonic Antigen 3.3 ng/mL (0.0-4.7) Vitamin B12 Level 189 PG/ML (193-986) L Folate 29.6 NG/ML (8.6-58.9) Sodium Level 132 MMOL/L (136-145) L 133 MMOL/L (136-145) L Potassium Level 3.8 MMOL/L (3.5-5.1) 3.7 MMOL/L (3.5-5.1) Chloride Level 99 MMOL/L (98-107) 101 MMOL/L (98-107) Carbon Dioxide Level 21 MMOL/L (21-32) 18 MMOL/L (21-32) L Anion Gap 12 mmol/L (5-15) 14 mmol/L (5-15) Blood Urea Nitrogen 8 mg/dL (7-18) 7 mg/dL (7-18) Creatinine 0.9 MG/DL (0.55-1.30) 0.7 MG/DL (0.55-1.30) Estimat Glomerular Filtration Rate > 60 mL/min (>60) > 60 mL/min (>60) Glucose Level 105 MG/DL (74-106) 86 MG/DL (74-106) Calcium Level 9.0 MG/DL (8.5-10.1) 9.0 MG/DL (8.5-10.1) White Blood Count 4.5 K/UL (4.8-10.8) L Red Blood Count 3.29 M/UL (4.20-5.40) L Hemoglobin 9.5 G/DL (12.0-16.0) L Hematocrit 30.2 % (37.0-47.0) L Mean Corpuscular Volume 92 FL (80-99) Mean Corpuscular Hemoglobin 28.9 PG (27.0-31.0) Mean Corpuscular Hemoglobin Concent 31.6 G/DL (32.0-36.0) L Red Cell Distribution Width 24.6 % (11.6-14.8) H Platelet Count 88 K/UL (150-450) L Mean Platelet Volume 5.7 FL (6.5-10.1) L Neutrophils (%) (Auto) % (45.0-75.0) Lymphocytes (%) (Auto) % (20.0-45.0) Monocytes (%) (Auto) % (1.0-10.0) Eosinophils (%) (Auto) % (0.0-3.0) Basophils (%) (Auto) % (0.0-2.0) Differential Total Cells Counted 100 Neutrophils % (Manual) 59 % (45-75) Lymphocytes % (Manual) 32 % (20-45) Monocytes % (Manual) 7 % (1-10) Eosinophils % (Manual) 2 % (0-3) Basophils % (Manual) 0 % (0-2) Band Neutrophils 0 % (0-8) Platelet Estimate Decreased L Platelet Morphology Normal Hypochromasia 2+ Anisocytosis 3+ Magnesium Level 1.9 MG/DL (1.8-2.4) 1.8 MG/DL (1.8-2.4) Osmolality 275 mOsm/kg (297-317) L Uric Acid 7.6 MG/DL (2.6-7.2) H Phosphorus Level 3.1 MG/DL (2.5-4.9) Ferritin 87 NG/ML (8-388) Total Bilirubin 0.3 MG/DL (0.2-1.0) Aspartate Amino Transf (AST/SGOT) 115 U/L (15-37) H Alanine Aminotransferase (ALT/SGPT) 42 U/L (12-78) Alkaline Phosphatase 90 U/L (46-116) Total Protein 7.7 G/DL (6.4-8.2) Albumin 3.3 G/DL (3.4-5.0) L Globulin 4.4 g/dL Albumin/Globulin Ratio 0.8 (1.0-2.7) L Thyroid Stimulating Hormone (TSH) 1.795 uiU/mL (0.358-3.740) Microbiology Date/Time Source Procedure Growth Status 06/14/20 11:14 Nasopharynx SARS-CoV-2 RdRp Gene Assay - Final Complete 06/14/20 11:00 Nasal Nares MRSA Culture - Final NO METHICILLIN RESISTANT STAPH AUREUS... Complete 06/14/20 11:00 Rectum - Final NO CARBAPENEM-RESISTANT ENTEROBACTERI... Complete Intake and Output 06/15/20 06/16/20 19:00 07:00 Intake Total 950 ml 735 ml Balance 950 ml 735 ml Intake Oral 800 ml IV Total 150 ml 735 ml # Voids 2 1 Assessment/Plan Assessment/Plan ASSESSMENT: This is a 64-year-old female: 1. New-onset seizure. 2. Hyponatremia. 3. Iron def anemia 4. abdominal pain 5. pancytopenia TREATMENT: 1. New-onset seizure. ?due to hyponatremia? Patient has been placed empirically on intravenous lorazepam for seizure. An initial phenytoin level was negative. A Neurology consultation has been obtained with Dr. Andre Sesay. 2. Hyponatremia. ?dyazide diuretic? Reason for hyponatremia is unknown. Patient has been started empirically on normal saline and KCL intravenously. We will follow recommendations of Nephrology, Dr. Villa. 3. Anemia GI=Dr Abebe. GI workup in progress. Continue IV venofer. Ramos Lou MD Jun 16, 2020 12:50
--- NOTE | 2020-06-16 15:34 | Consultation ---
Consult Note Consult Note I am asked to evaluate the patient at the request of Dr. Edward for hyponatremia Patient interviewed and examined Data reviewed Patient admitted on June 14 with a chief complaint of seizure disorder. At that time her serum sodium was 125. Today serum sodium is 132. Allergies: Coded Allergies: ASPIRIN (Verified Allergy, Unknown, 08/20/10) CODEINE (Verified Allergy, Unknown, 08/20/10) PENICILLINS (Verified Allergy, Unknown, 08/20/10) SOCIAL HISTORY: Patient is a . Patient lives alone. Patient denies tobacco or alcohol use. PHYSICAL EXAMINATION: VITAL SIGNS: Temperature 97.4, respirations 17, pulse 102, blood pressure 139/72. GENERAL: Patient is well-developed, well-nourished female, in no apparent distress. HEENT: Eyes, pupils are equal and responsive to light and accommodation. Extraocular movements are intact. NECK: Supple without lymphadenopathy. CHEST: Lungs are clear to auscultation bilaterally without wheezes or rales. CARDIOVASCULAR: Regular rhythm and rate. S1, S2 are normal without murmurs, rubs, or gallops. ABDOMEN: Soft, nontender, nondistended. Positive bowel sounds. No evidence of hepatosplenomegaly. Currently, no rebound or guarding noted. EXTREMITIES: Negative for clubbing, cyanosis, or edema. RECTAL/GENITAL: Not performed. NEUROLOGICAL: Cranial nerves II through XII grossly intact without focal deficits. Motor strength is 5/5 bilaterally. Deep tendon reflexes are 2+ plantar. LABORATORY STUDIES: WBC 3.8, hemoglobin 10.5, hematocrit 32.0, platelets 118,000. Sodium 120, potassium 3.8, chloride 84, CO2 18, BUN 3, creatinine 0.73, glucose 149. A CT of the brain was reported as no acute masses or hemorrhage. . Assessment/Plan Impression: Hyponatremia, improving Seizure disorder Anemia Suggestion: Urine studies including urine osmolality and urine for tox screen Normal saline infusion Check uric acid TSH Anemia work-up, suggests a low iron and low B12 level. Will give IV iron and subcu B12 I spent an additional 36 minutes on review of medical records including prior hospital records,consult notes, progress notes, procedures ,imaging labs, hemodynamics, and other clinical documentation. Over 35 min Jose Miguel Villa MD Jun 16, 2020 15:34
[2020-06-16 16:00] VITALS: BP 126/72
[2020-06-16] MEDS: Vitamin B12 1000mcg/ml Inj SUBQ SCH (17:20)
[2020-06-16] MEDS: Docusate 100mg cap ORAL SCH (17:20)
[2020-06-16 20:00] VITALS: BP 103/53
[2020-06-16] MEDS: Iron Sucrose 100 MG in NS 55 ML IV SCH (20:27)
[2020-06-17] VITALS (7 sets, daily range): BP systolic 108–121; BP diastolic 57–77
[2020-06-17 07:51] LABS: HEMATOCRIT 28.7 % (37.0-47.0); HEMOGLOBIN 9.1 G/DL (12.0-16.0); MEAN CORPUSCULAR VOLUME 92 FL (80-99); PLATELET COUNT 99 K/UL (150-450); RED BLOOD COUNT 3.11 M/UL (4.20-5.40); RED CELL DISTRIBUTION WIDTH 25.8 % (11.6-14.8); WHITE BLOOD COUNT 3.9 K/UL (4.8-10.8)
[2020-06-17] MEDS: Docusate 100mg cap ORAL SCH ×3 (08:20→17:06)
[2020-06-17] MEDS: Heparin 5000 units/ml inj SUBQ SCH ×2 (08:20→20:27)
[2020-06-17] MEDS: Vitamin B12 1000mcg/ml Inj SUBQ SCH (08:20)
[2020-06-17 08:30] LABS: ALANINE AMINOTRANSFERASE 35 U/L (12-78); ALBUMIN 3.1 G/DL (3.4-5.0); ALBUMIN/GLOBULIN RATIO 0.8 (1.0-2.7); ALKALINE PHOSPHATASE 78 U/L (46-116); ANION GAP 11 mmol/L (5-15); ASPARTATE AMINO TRANSFERASE 86 U/L (15-37); BILIRUBIN,TOTAL 0.2 MG/DL (0.2-1.0); BLOOD UREA NITROGEN 5 mg/dL (7-18); CALCIUM 8.8 MG/DL (8.5-10.1); CARBON DIOXIDE 23 MMOL/L (21-32); CHLORIDE 105 MMOL/L (98-107); CREATININE 0.6 MG/DL (0.55-1.30); PHOSPHORUS 3.9 MG/DL (2.5-4.9); POTASSIUM 3.7 MMOL/L (3.5-5.1); SODIUM 139 MMOL/L (136-145)
--- NOTE | 2020-06-17 09:27 | Diagnostic Imaging Report ---
EXAM: XR Chest, 1 View CLINICAL HISTORY: DYSPNEA TECHNIQUE: Frontal view of the chest. COMPARISON: CXR of 10/28/[address] abdomen and pelvis of 06/16/20. FINDINGS: Lungs: Unremarkable. No consolidation. Pleural space: Unremarkable. No pneumothorax. Heart: Unremarkable. No cardiomegaly. Mediastinum: Unremarkable. Bones/joints: Degenerative changes IMPRESSION: No evidence of acute pulmonary disease
[2020-06-17] MEDS: NS w/KCl 20mEq 1000ml 1,000 ML IV SCH ×2 (10:12→20:36)
--- NOTE | 2020-06-17 14:47 | Nephrology Progress Note ---
Assessment/Plan Problem List: (1) Hyponatremia (2) New onset seizure (3) Anemia Assessment Hyponatremia, improving Seizure disorder Anemia Plan Urine studies including urine osmolality and urine for tox screen Normal saline infusion Check uric acid TSH Anemia work-up, suggests a low iron and low B12 level. Will give IV iron and subcu B12 Subjective ROS Limited/Unobtainable: No Constitutional: Reports: malaise Objective Objective Last 24 Hour Vital Signs Date Time Temp Pulse Resp B/P (MAP) Pulse Ox O2 Delivery O2 Flow Rate FiO2 06/17/20 12:00 98.1 70 19 120/73 (89) 96 06/17/20 09:00 Room Air 06/17/20 08:20 75 117/77 06/17/20 08:00 98.2 75 18 117/77 (90) 99 06/17/20 04:00 98.2 87 19 120/70 (87) 99 06/17/20 00:00 97.8 72 20 110/57 (74) 98 06/16/20 21:00 Room Air 06/16/20 20:00 98.3 70 19 103/53 (70) 99 06/16/20 17:58 98.1 06/16/20 16:00 98.1 73 18 126/72 (90) 99 Intake and Output 06/16/20 06/17/20 19:00 07:00 Intake Total 2500 ml 650 ml Balance 2500 ml 650 ml Intake Oral 1600 ml 500 ml IV Total 900 ml 150 ml # Voids 3 Laboratory Tests 06/16/20 21:40: Urine Opiates Screen Negative, Urine Barbiturates Screen Negative, Phencyclidine (PCP) Screen Negative, Urine Amphetamines Screen Negative, Urine Benzodiazepines Screen Negative, Urine Cocaine Screen Negative, Urine Marijuana (THC) Screen Negative 06/17/20 06:15: White Blood Count 3.9L, Red Blood Count 3.11L, Hemoglobin 9.1L, Hematocrit 28.7L , Mean Corpuscular Volume 92, Mean Corpuscular Hemoglobin 29.1, Mean Corpuscular Hemoglobin Concent 31.6L, Red Cell Distribution Width 25.8H, Platelet Count 99L, Mean Platelet Volume 5.9L, Neutrophils (%) (Auto) , Lymphocytes (%) (Auto) , Monocytes (%) (Auto) , Eosinophils (%) (Auto) , Basophils (%) (Auto) , Differential Total Cells Counted 100, Neutrophils % ( Manual) 53, Lymphocytes % (Manual) 33, Monocytes % (Manual) 11H, Eosinophils % ( Manual) 2, Basophils % (Manual) 1, Band Neutrophils 0, Platelet Estimate DecreasedL, Platelet Morphology Normal, Hypochromasia 2+, Anisocytosis 4+, Erythrocyte Sedimentation Rate 45H, Sodium Level 139, Potassium Level 3.7, Chloride Level 105, Carbon Dioxide Level 23, Anion Gap 11, Blood Urea Nitrogen 5L, Creatinine 0.6, Estimat Glomerular Filtration Rate > 60, Glucose Level 95, Hemoglobin A1c 6.1H, Uric Acid 7.3H, Calcium Level 8.8, Phosphorus Level 3.9, Magnesium Level 1.9, Total Bilirubin 0.2, Aspartate Amino Transf (AST/SGOT) 86H , Alanine Aminotransferase (ALT/SGPT) 35, Alkaline Phosphatase 78, C-Reactive Protein, Quantitative < 0.4, Pro-B-Type Natriuretic Peptide 123, Total Protein 7.1, Albumin 3.1L, Globulin 4.0, Albumin/Globulin Ratio 0.8L Height (Feet): 5 Height (Inches): 7.00 Weight (Pounds): 162 General Appearance: no apparent distress Cardiovascular: normal rate Respiratory/Chest: lungs clear Abdomen: soft Jose Miguel Villa MD Jun 17, 2020 14:47
--- NOTE | 2020-06-17 15:52 | Internal Med Progress Note ---
Subjective Date of Service: Jun 17, 2020 Physician Name Lou,Ramos Attending Physician Orville Edward MD Current Medications Medications (Trade) Dose Ordered Sig/Becky Route PRN Reason Start Time Stop Time Status Last Admin Dose Admin Acetaminophen (Tylenol) 650 mg Q4H PRN ORAL Temp >100.5 06/14/20 13:45 07/14/20 13:44 Acetaminophen (Tylenol) 650 mg Q6H PRN ORAL headache & mild pain 06/14/20 14:00 07/14/20 09:59 06/16/20 17:28 Atenolol (Tenormin) 100 mg DAILY ORAL 06/14/20 14:45 07/14/20 14:44 06/17/20 08:20 Barium Sulfate (Readi-Cat 2) 450 ml NOW PRN ORAL Radiology Procedure 06/15/20 20:00 06/17/20 19:48 Cyanocobalamin (Vitamin B12) 1,000 mcg DAILY SUBQ 06/16/20 15:45 06/18/20 09:01 06/17/20 08:20 Diphenhydramine HCl (Benadryl) 25 mg Q6H PRN ORAL Itching/Pruritis 06/14/20 13:45 07/14/20 13:44 Docusate Sodium (Colace) 100 mg THREE TIMES A DAY ORAL 06/16/20 18:00 07/16/20 17:59 06/17/20 12:30 Famotidine (Pepcid) 20 mg BID ORAL 06/14/20 18:00 09/12/20 17:59 06/17/20 08:20 Heparin Sodium (Porcine) (Heparin 5000 units/ml) 5,000 units EVERY 12 HOURS SUBQ 06/14/20 11:00 07/29/20 10:59 Iohexol (OMNIPAQUE-300 100ml) 100 ml NOW PRN INJ Radiology Procedure 06/15/20 20:00 06/17/20 19:48 Iopamidol (Isovue-300 100ml) 100 ml NOW PRN INJ Radiology Procedure 06/15/20 20:00 06/17/20 19:59 Iron Sucrose 100 mg/Sodium Chloride 60 ml @ 240 mls/hr BEDTIME IV 06/15/20 21:00 06/19/20 21:14 06/16/20 20:27 Loperamide HCl (Imodium) 4 mg Q4H PRN ORAL Diarrhea 06/14/20 13:45 07/14/20 13:44 Lorazepam (Ativan 2mg/ml 1ml) 0.5 mg Q4H PRN IV For Anxiety 06/14/20 13:45 06/21/20 13:44 Lorazepam (Ativan 2mg/ml 1ml) 1 mg Q4H PRN IV seizures 06/14/20 13:45 06/21/20 13:44 Morphine Sulfate (Morphine Sulfate) 2 mg Q6H PRN IVP Moderate Pain (Pain Scale 4-6) 06/14/20 13:46 06/21/20 13:45 Nitroglycerin (Ntg) 0.4 mg Q5M PRN SL Prn Chest Pain 06/14/20 13:45 07/14/20 13:44 Ondansetron HCl (Zofran) 4 mg Q6H PRN IVP Nausea & Vomiting 06/14/20 13:45 07/14/20 13:44 06/14/20 17:06 Polyethylene Glycol (Miralax) 17 gm DAILYPRN PRN ORAL Constipation 06/14/20 13:45 07/14/20 13:44 Potassium Chloride/Sodium Chloride 1,000 ml @ 75 mls/hr [id number] IV 06/14/20 14:00 07/14/20 13:59 06/17/20 10:12 Temazepam (Restoril) 15 mg HSPRN PRN ORAL Insomnia 06/14/20 13:45 06/21/20 13:44 06/16/20 21:33 Allergies: Coded Allergies: ASPIRIN (Verified Allergy, Unknown, 08/20/10) CODEINE (Verified Allergy, Unknown, 08/20/10) PENICILLINS (Verified Allergy, Unknown, 08/20/10) ROS Limited/Unobtainable: No Constitutional: Reports: no symptoms HEENT: Reports: no symptoms Cardiovascular: Reports: no symptoms Respiratory: Reports: no symptoms Gastrointestinal/Abdominal: Reports: no symptoms Genitourinary: Reports: no symptoms Neurologic/Psychiatric: Reports: no symptoms Subjective 64 YO F admitted with new onset seizure. Now hyponatremia and anemia. Cover for Int Gary-Dr Edward Objective Last Vital Signs Date Time Temp Pulse Resp B/P (MAP) Pulse Ox O2 Delivery O2 Flow Rate FiO2 06/17/20 12:00 98.1 70 19 120/73 (89) 96 06/17/20 09:00 Room Air Laboratory Tests Test 06/16/20 21:40 06/17/20 06:15 Urine Opiates Screen Negative (NEGATIVE) Urine Barbiturates Screen Negative (NEGATIVE) Phencyclidine (PCP) Screen Negative (NEGATIVE) Urine Amphetamines Screen Negative (NEGATIVE) Urine Benzodiazepines Screen Negative (NEGATIVE) Urine Cocaine Screen Negative (NEGATIVE) Urine Marijuana (THC) Screen Negative (NEGATIVE) White Blood Count 3.9 K/UL (4.8-10.8) L Red Blood Count 3.11 M/UL (4.20-5.40) L Hemoglobin 9.1 G/DL (12.0-16.0) L Hematocrit 28.7 % (37.0-47.0) L Mean Corpuscular Volume 92 FL (80-99) Mean Corpuscular Hemoglobin 29.1 PG (27.0-31.0) Mean Corpuscular Hemoglobin Concent 31.6 G/DL (32.0-36.0) L Red Cell Distribution Width 25.8 % (11.6-14.8) H Platelet Count 99 K/UL (150-450) L Mean Platelet Volume 5.9 FL (6.5-10.1) L Neutrophils (%) (Auto) % (45.0-75.0) Lymphocytes (%) (Auto) % (20.0-45.0) Monocytes (%) (Auto) % (1.0-10.0) Eosinophils (%) (Auto) % (0.0-3.0) Basophils (%) (Auto) % (0.0-2.0) Differential Total Cells Counted 100 Neutrophils % (Manual) 53 % (45-75) Lymphocytes % (Manual) 33 % (20-45) Monocytes % (Manual) 11 % (1-10) H Eosinophils % (Manual) 2 % (0-3) Basophils % (Manual) 1 % (0-2) Band Neutrophils 0 % (0-8) Platelet Estimate Decreased L Platelet Morphology Normal Hypochromasia 2+ Anisocytosis 4+ Erythrocyte Sedimentation Rate 45 MM/HR (0-30) H Sodium Level 139 MMOL/L (136-145) Potassium Level 3.7 MMOL/L (3.5-5.1) Chloride Level 105 MMOL/L (98-107) Carbon Dioxide Level 23 MMOL/L (21-32) Anion Gap 11 mmol/L (5-15) Blood Urea Nitrogen 5 mg/dL (7-18) L Creatinine 0.6 MG/DL (0.55-1.30) Estimat Glomerular Filtration Rate > 60 mL/min (>60) Glucose Level 95 MG/DL (74-106) Hemoglobin A1c 6.1 % (4.3-6.0) H Uric Acid 7.3 MG/DL (2.6-7.2) H Calcium Level 8.8 MG/DL (8.5-10.1) Phosphorus Level 3.9 MG/DL (2.5-4.9) Magnesium Level 1.9 MG/DL (1.8-2.4) Total Bilirubin 0.2 MG/DL (0.2-1.0) Aspartate Amino Transf (AST/SGOT) 86 U/L (15-37) H Alanine Aminotransferase (ALT/SGPT) 35 U/L (12-78) Alkaline Phosphatase 78 U/L (46-116) C-Reactive Protein, Quantitative < 0.4 mg/dL (0.00-0.90) Pro-B-Type Natriuretic Peptide 123 pg/mL (0-125) Total Protein 7.1 G/DL (6.4-8.2) Albumin 3.1 G/DL (3.4-5.0) L Globulin 4.0 g/dL Albumin/Globulin Ratio 0.8 (1.0-2.7) L Intake and Output 06/16/20 06/17/20 19:00 07:00 Intake Total 2500 ml 650 ml Balance 2500 ml 650 ml Intake Oral 1600 ml 500 ml IV Total 900 ml 150 ml # Voids 3 Objective Objective General: No acute distress, awake and alert HEENT: NCAT, sclera anicteric, PERRL, EOMI. Neck: Supple, no significant jugular venous distention, Lungs: Good inspiratory effort, no accessory muscle use, clear to auscultation bilaterally, no Wheeze or Rales. Heart: Regular rate and rhythm, normal S1/S2, no murmurs/gallops Abdomen: soft, generalized tenderness, nondistended. Normoactive bowel sounds. / Rectal: Refused and deferred. Extremities: No Cyanosis , clubbing or edema. Neuro: A&O x 3, Able to move all extremities Skin: warm, no rashes or lesions Psych: Normal mood and affect Assessment/Plan Assessment/Plan ASSESSMENT: This is a 64-year-old female: 1. New-onset seizure. 2. Hyponatremia. 3. Iron def anemia 4. abdominal pain 5. pancytopenia TREATMENT: 1. New-onset seizure. ?due to hyponatremia? Patient has been placed empirically on intravenous lorazepam for seizure. An initial phenytoin level was negative. A Neurology consultation has been obtained with Dr. Andre Sesay. 2. Hyponatremia. ?dyazide diuretic vs SIADH? Reason for hyponatremia is unknown. Patient has been started empirically on normal saline and KCL intravenously. We will follow recommendations of Nephrology, Dr. Villa. 3. Anemia GI=Dr Abebe. GI workup in progress. Continue IV venofer and B12 Ramos Lou MD Jun 17, 2020 15:52
--- NOTE | 2020-06-17 19:30 | Pulmonology Progress Note ---
Subjective ROS Limited/Unobtainable: No Constitutional: Reports: no symptoms HEENT: Repors: no symptoms Respiratory: Reports: no symptoms Allergies: Coded Allergies: ASPIRIN (Verified Allergy, Unknown, 08/20/10) CODEINE (Verified Allergy, Unknown, 08/20/10) PENICILLINS (Verified Allergy, Unknown, 08/20/10) Objective Last 24 Hour Vital Signs Date Time Temp Pulse Resp B/P (MAP) Pulse Ox O2 Delivery O2 Flow Rate FiO2 06/17/20 16:00 98.1 81 17 108/63 (78) 100 06/17/20 12:00 98.1 70 19 120/73 (89) 96 06/17/20 09:00 Room Air 06/17/20 08:20 75 117/77 06/17/20 08:00 98.2 75 18 117/77 (90) 99 06/17/20 04:00 98.2 87 19 120/70 (87) 99 06/17/20 00:00 97.8 72 20 110/57 (74) 98 06/16/20 21:00 Room Air 06/16/20 20:00 98.3 70 19 103/53 (70) 99 Intake and Output 06/16/20 06/17/20 19:00 07:00 Intake Total 2500 ml 650 ml Balance 2500 ml 650 ml Intake Oral 1600 ml 500 ml IV Total 900 ml 150 ml # Voids 3 General Appearance: WD/WN HEENT: normocephalic, atraumatic Respiratory: lungs clear, normal breath sounds Breasts: no masses Cardiovascular: regular rhythm Abdomen: normal bowel sounds, soft, non tender Genitourinary: normal external genitalia Extremities: no clubbing Skin: no rash Laboratory Tests 06/16/20 21:40: Urine Opiates Screen Negative, Urine Barbiturates Screen Negative, Phencyclidine (PCP) Screen Negative, Urine Amphetamines Screen Negative, Urine Benzodiazepines Screen Negative, Urine Cocaine Screen Negative, Urine Marijuana (THC) Screen Negative 06/17/20 06:15: White Blood Count 3.9L, Red Blood Count 3.11L, Hemoglobin 9.1L, Hematocrit 28.7L , Mean Corpuscular Volume 92, Mean Corpuscular Hemoglobin 29.1, Mean Corpuscular Hemoglobin Concent 31.6L, Red Cell Distribution Width 25.8H, Platelet Count 99L, Mean Platelet Volume 5.9L, Neutrophils (%) (Auto) , Lymphocytes (%) (Auto) , Monocytes (%) (Auto) , Eosinophils (%) (Auto) , Basophils (%) (Auto) , Differential Total Cells Counted 100, Neutrophils % ( Manual) 53, Lymphocytes % (Manual) 33, Monocytes % (Manual) 11H, Eosinophils % ( Manual) 2, Basophils % (Manual) 1, Band Neutrophils 0, Platelet Estimate DecreasedL, Platelet Morphology Normal, Hypochromasia 2+, Anisocytosis 4+, Erythrocyte Sedimentation Rate 45H, Sodium Level 139, Potassium Level 3.7, Chloride Level 105, Carbon Dioxide Level 23, Anion Gap 11, Blood Urea Nitrogen 5L, Creatinine 0.6, Estimat Glomerular Filtration Rate > 60, Glucose Level 95, Hemoglobin A1c 6.1H, Uric Acid 7.3H, Calcium Level 8.8, Phosphorus Level 3.9, Magnesium Level 1.9, Total Bilirubin 0.2, Aspartate Amino Transf (AST/SGOT) 86H , Alanine Aminotransferase (ALT/SGPT) 35, Alkaline Phosphatase 78, C-Reactive Protein, Quantitative < 0.4, Pro-B-Type Natriuretic Peptide 123, Total Protein 7.1, Albumin 3.1L, Globulin 4.0, Albumin/Globulin Ratio 0.8L Current Medications Medications (Trade) Dose Ordered Sig/Becky Route PRN Reason Start Time Stop Time Status Last Admin Dose Admin Acetaminophen (Tylenol) 650 mg Q4H PRN ORAL Temp >100.5 06/14/20 13:45 07/14/20 13:44 Acetaminophen (Tylenol) 650 mg Q6H PRN ORAL headache & mild pain 06/14/20 14:00 07/14/20 09:59 06/16/20 17:28 Atenolol (Tenormin) 100 mg DAILY ORAL 06/14/20 14:45 07/14/20 14:44 06/17/20 08:20 Barium Sulfate (Readi-Cat 2) 450 ml NOW PRN ORAL Radiology Procedure 06/15/20 20:00 06/17/20 19:48 Cyanocobalamin (Vitamin B12) 1,000 mcg DAILY SUBQ 06/16/20 15:45 06/18/20 09:01 06/17/20 08:20 Diphenhydramine HCl (Benadryl) 25 mg Q6H PRN ORAL Itching/Pruritis 06/14/20 13:45 07/14/20 13:44 Docusate Sodium (Colace) 100 mg THREE TIMES A DAY ORAL 06/16/20 18:00 07/16/20 17:59 06/17/20 17:06 Famotidine (Pepcid) 20 mg BID ORAL 06/14/20 18:00 09/12/20 17:59 06/17/20 17:07 Heparin Sodium (Porcine) (Heparin 5000 units/ml) 5,000 units EVERY 12 HOURS SUBQ 06/14/20 11:00 07/29/20 10:59 Iohexol (OMNIPAQUE-300 100ml) 100 ml NOW PRN INJ Radiology Procedure 06/15/20 20:00 06/17/20 19:48 Iopamidol (Isovue-300 100ml) 100 ml NOW PRN INJ Radiology Procedure 06/15/20 20:00 06/17/20 19:59 Iron Sucrose 100 mg/Sodium Chloride 60 ml @ 240 mls/hr BEDTIME IV 06/15/20 21:00 06/19/20 21:14 06/16/20 20:27 Loperamide HCl (Imodium) 4 mg Q4H PRN ORAL Diarrhea 06/14/20 13:45 07/14/20 13:44 Lorazepam (Ativan 2mg/ml 1ml) 0.5 mg Q4H PRN IV For Anxiety 06/14/20 13:45 06/21/20 13:44 Lorazepam (Ativan 2mg/ml 1ml) 1 mg Q4H PRN IV seizures 06/14/20 13:45 06/21/20 13:44 Morphine Sulfate (Morphine Sulfate) 2 mg Q6H PRN IVP Moderate Pain (Pain Scale 4-6) 06/14/20 13:46 06/21/20 13:45 Nitroglycerin (Ntg) 0.4 mg Q5M PRN SL Prn Chest Pain 06/14/20 13:45 07/14/20 13:44 Ondansetron HCl (Zofran) 4 mg Q6H PRN IVP Nausea & Vomiting 06/14/20 13:45 07/14/20 13:44 06/14/20 17:06 Polyethylene Glycol (Miralax) 17 gm DAILYPRN PRN ORAL Constipation 06/14/20 13:45 07/14/20 13:44 Potassium Chloride/Sodium Chloride 1,000 ml @ 75 mls/hr [id number] IV 06/14/20 14:00 07/14/20 13:59 06/17/20 10:12 Temazepam (Restoril) 15 mg HSPRN PRN ORAL Insomnia 06/14/20 13:45 06/21/20 13:44 06/16/20 21:33 Assessment/Plan Problems: (1) New onset seizure (2) Acute encephalopathy (3) Hyponatremia (4) Anemia Assessment/Plan feels better today Na is normal now seizure precaution neuro evaluation hyponatremia w/u check Na in am dvt prophylaxis. awaiting neuro evaluation Emma Mcfarlane MD Jun 17, 2020 19:30
[2020-06-17] MEDS: Iron Sucrose 100 MG in NS 55 ML IV SCH (20:36)
[2020-06-17] MEDS: Morphine Sulfate 2mg/ml Inj(IV/IM USE ONLY) IVP PRN (23:26)
[2020-06-18 04:00] VITALS: BP 114/73
[2020-06-18] MEDS: Morphine Sulfate 2mg/ml Inj(IV/IM USE ONLY) IVP PRN (05:31)
--- NOTE | 2020-06-18 05:59 | Consultation ---
DATE OF CONSULTATION: 06/16/2020 GASTROENTEROLOGY CONSULTATION CONSULTING PHYSICIAN: Lee Abebe MD CHIEF COMPLAINT: I was asked to see this patient by Dr. Ramos Lou and Dr. Orville Edward for management of anemia and abdominal pain. HISTORY OF PRESENT ILLNESS: The patient is a pleasant 64-year-old woman who was admitted to the hospital due to seizure disorder. During the course of the hospitalization, the patient was also noted to have anemia with a stable hematocrit. Her platelet counts were also somewhat low. In addition to the above, iron panel was drawn, which showed a low iron saturation and low iron. The patient had complained of some abdominal pain in the epigastric region and therefore this consultation was generated. The patient has had Iban-en-Y gastric bypass surgery and last underwent an endoscopy and colonoscopy in 2014 at [facility]. In December of last year, the endoscopy and colonoscopy showed normal esophagus, a 5-cm gastric pouch, no anastomotic ulcerations, scattered diverticulosis, a diminutive polyp which was removed. Review of results of [facility] showed that in 2015 the patient's hemoglobin was 11 and hematocrit was 33. The patient does not have any nausea or vomiting. She has occasional loose stools. PAST MEDICAL HISTORY: Status post Iban-en-Y gastric bypass surgery, history of diabetes, history of hyperlipidemia, depression, anxiety, hypertension, history of gastroesophageal reflux, history of cholelithiasis. PAST SURGICAL HISTORY: History of section, history of hysterectomy, history of Iban-en-Y gastric bypass. FAMILY HISTORY: Noncontributory. SOCIAL HISTORY: The patient does not smoke. She previously used to drink more heavily, but she does not drink now. She is a . She lives alone. ALLERGIES: Aspirin, codeine, and penicillin. MEDICATIONS: See the chart list for details. REVIEW OF SYSTEMS: Otherwise negative. PHYSICAL EXAMINATION: GENERAL: Pleasant woman seen in her room. HEENT: Normocephalic and atraumatic. Sclerae anicteric. Oropharynx is clear. NECK: Supple. CHEST: Clear to auscultation. CARDIOVASCULAR: Revealed a regular rate. ABDOMEN: Soft. Good bowel sounds. There is some mild amount of tenderness in the epigastric region without guarding or rebound. EXTREMITIES: Revealed no edema. LABORATORY DATA: Noted. ASSESSMENT: This patient presents with some degree of anemia, which was mild, but with iron deficiency. Given the fact that the patient has had Iban-en-Y gastric bypass surgery, some degree of iron deficiency anemia may be expected based on her iron malabsorption. Alternatively, she may have a upper GI tract region such as anastomotic ulcer which may contribute to her pain and also anemia. The patient can undergo an endoscopy at a later date once her seizure disorder has been evaluated and treated. The endoscopy can also be done as an outpatient. The patient's sodium was low on admission, but is protected. Her blood count is not significantly different from her previous counts at [facility], but some degree of workout may be necessary given her iron deficiency. Proton pump inhibitors can also be given in the meantime to treat her symptoms. RECOMMENDATIONS: 1. Trial of proton pump inhibitor. 2. Follow laboratory parameters, such as IV iron. 3. Endoscopy at a later date. Thank you for asking me to participate in the care of this patient. Lee Abebe M.D. DR: MARJAN JOB#: [id number] CC:
--- NOTE | 2020-06-18 07:20 | General Progress Note ---
Assessment/Plan Assessment/Plan: Assessment - Epigastric pain - anemia - s/p PREETHI gastric bypass - mild diverticulosis - resolved hyponatremia - seizure Recommendation - po as tolerated - acid blockade - EGD later this week or as outpatient Subjective Allergies: Coded Allergies: ASPIRIN (Verified Allergy, Unknown, 08/20/10) CODEINE (Verified Allergy, Unknown, 08/20/10) PENICILLINS (Verified Allergy, Unknown, 08/20/10) Subjective Feels OK tolerating PO mild epigastric discomfort Objective Last 24 Hour Vital Signs Date Time Temp Pulse Resp B/P (MAP) Pulse Ox O2 Delivery O2 Flow Rate FiO2 06/18/20 04:00 98.1 78 20 114/73 (87) 95 06/17/20 23:56 97.3 70 18 121/69 (86) 100 06/17/20 21:00 Room Air 06/17/20 20:00 97.7 68 18 110/72 (85) 99 06/17/20 16:00 98.1 81 17 108/63 (78) 100 06/17/20 12:00 98.1 70 19 120/73 (89) 96 06/17/20 09:00 Room Air 06/17/20 08:20 75 117/77 06/17/20 08:00 98.2 75 18 117/77 (90) 99 Intake and Output 06/17/20 06/18/20 19:00 07:00 Intake Total 1455 ml 1185 ml Balance 1455 ml 1185 ml Intake Oral 630 ml 360 ml IV Total 825 ml 825 ml # Voids 3 1 Laboratory Tests 06/18/20 06:00: White Blood Count [Pending], Red Blood Count [Pending], Hemoglobin [Pending], Hematocrit [Pending], Mean Corpuscular Volume [Pending], Mean Corpuscular Hemoglobin [Pending], Mean Corpuscular Hemoglobin Concent [Pending], Red Cell Distribution Width [Pending], Platelet Count [Pending], Mean Platelet Volume [ Pending], Neutrophils (%) (Auto) [Pending], Lymphocytes (%) (Auto) [Pending], Monocytes (%) (Auto) [Pending], Eosinophils (%) (Auto) [Pending], Basophils (%) (Auto) [Pending], Sodium Level [Pending], Potassium Level [Pending], Chloride Level [Pending], Carbon Dioxide Level [Pending], Blood Urea Nitrogen [Pending], Creatinine [Pending], Estimat Glomerular Filtration Rate [Pending], Glucose Level [Pending], Calcium Level [Pending], Phosphorus Level [Pending], Magnesium Level [Pending], Total Bilirubin [Pending], Aspartate Amino Transf (AST/SGOT) [ Pending], Alanine Aminotransferase (ALT/SGPT) [Pending], Alkaline Phosphatase [ Pending], Total Protein [Pending], Albumin [Pending], Globulin [Pending] Height (Feet): 5 Height (Inches): 7.00 Weight (Pounds): 162 Objective WDWN AA woman NCAT supple CTA RRR abd soft, mild epigastric TTP no edema Lee Abebe MD Jun 18, 2020 07:20
[2020-06-18 07:28] LABS: BASOPHILS % (AUTO) 1.1 % (0.0-2.0); EOSINOPHILS % (AUTO) 1.9 % (0.0-3.0); HEMOGLOBIN 8.9 G/DL (12.0-16.0); MEAN CORPUSCULAR VOLUME 93 FL (80-99); MONOCYTES % (AUTO) 13.2 % (1.0-10.0); NEUTROPHILS % (AUTO) 45.8 % (45.0-75.0); PLATELET COUNT 137 K/UL (150-450); RED BLOOD COUNT 2.99 M/UL (4.20-5.40); RED CELL DISTRIBUTION WIDTH 26.6 % (11.6-14.8); WHITE BLOOD COUNT 3.5 K/UL (4.8-10.8)
[2020-06-18 07:49] LABS: ALANINE AMINOTRANSFERASE 30 U/L (12-78); ALBUMIN 2.8 G/DL (3.4-5.0); ALBUMIN/GLOBULIN RATIO 0.7 (1.0-2.7); ALKALINE PHOSPHATASE 67 U/L (46-116); ANION GAP 10 mmol/L (5-15); ASPARTATE AMINO TRANSFERASE 69 U/L (15-37); BILIRUBIN,TOTAL 0.2 MG/DL (0.2-1.0); BLOOD UREA NITROGEN 7 mg/dL (7-18); CALCIUM 8.1 MG/DL (8.5-10.1); CARBON DIOXIDE 22 MMOL/L (21-32); CHLORIDE 110 MMOL/L (98-107); CREATININE 0.6 MG/DL (0.55-1.30); PHOSPHORUS 3.8 MG/DL (2.5-4.9); POTASSIUM 3.9 MMOL/L (3.5-5.1); SODIUM 142 MMOL/L (136-145)
[2020-06-18 08:00] VITALS: BP 112/73
[2020-06-18] MEDS: Docusate 100mg cap ORAL SCH ×3 (08:08→17:17)
[2020-06-18] MEDS: Vitamin B12 1000mcg/ml Inj SUBQ SCH (08:08)
[2020-06-18] MEDS: Heparin 5000 units/ml inj SUBQ SCH ×2 (08:09→20:12)
[2020-06-18] MEDS: Pantoprazole Inj IVP SCH (10:36)
[2020-06-18] MEDS: NS w/KCl 20mEq 1000ml 1,000 ML IV SCH (11:36)
[2020-06-18 11:57] VITALS: BP 116/64
--- NOTE | 2020-06-18 12:30 | Pulmonology Progress Note ---
Subjective ROS Limited/Unobtainable: No Constitutional: Reports: no symptoms HEENT: Repors: no symptoms Respiratory: Reports: no symptoms Allergies: Coded Allergies: ASPIRIN (Verified Allergy, Unknown, 08/20/10) CODEINE (Verified Allergy, Unknown, 08/20/10) PENICILLINS (Verified Allergy, Unknown, 08/20/10) Objective Last 24 Hour Vital Signs Date Time Temp Pulse Resp B/P (MAP) Pulse Ox O2 Delivery O2 Flow Rate FiO2 06/18/20 11:57 98.1 69 18 116/64 (81) 94 06/18/20 10:36 Room Air 06/18/20 08:08 76 112/73 06/18/20 08:00 97.8 79 18 112/73 (86) 98 06/18/20 04:00 98.1 78 20 114/73 (87) 95 06/17/20 23:56 97.3 70 18 121/69 (86) 100 06/17/20 21:00 Room Air 06/17/20 20:00 97.7 68 18 110/72 (85) 99 06/17/20 16:00 98.1 81 17 108/63 (78) 100 Intake and Output 06/17/20 06/18/20 19:00 07:00 Intake Total 1455 ml 1185 ml Balance 1455 ml 1185 ml Intake Oral 630 ml 360 ml IV Total 825 ml 825 ml # Voids 3 1 General Appearance: WD/WN HEENT: normocephalic, atraumatic Respiratory: lungs clear, normal breath sounds Breasts: no masses Cardiovascular: regular rhythm Abdomen: normal bowel sounds, soft, non tender Genitourinary: normal external genitalia Extremities: no clubbing Skin: no rash Laboratory Tests 06/18/20 06:00: White Blood Count 3.5L, Red Blood Count 2.99L, Hemoglobin 8.9L, Hematocrit 28.0L , Mean Corpuscular Volume 93, Mean Corpuscular Hemoglobin 29.6, Mean Corpuscular Hemoglobin Concent 31.6L, Red Cell Distribution Width 26.6H, Platelet Count 137L, Mean Platelet Volume 5.5L, Neutrophils (%) (Auto) 45.8, Lymphocytes (%) (Auto) 38.0, Monocytes (%) (Auto) 13.2H, Eosinophils (%) (Auto) 1.9, Basophils (%) (Auto) 1.1, Sodium Level 142, Potassium Level 3.9, Chloride Level 110H, Carbon Dioxide Level 22, Anion Gap 10, Blood Urea Nitrogen 7, Creatinine 0.6, Estimat Glomerular Filtration Rate > 60, Glucose Level 91, Calcium Level 8.1L, Phosphorus Level 3.8, Magnesium Level 1.7L, Total Bilirubin 0.2, Aspartate Amino Transf (AST/SGOT) 69H, Alanine Aminotransferase (ALT/SGPT) 30, Alkaline Phosphatase 67, Total Protein 6.6, Albumin 2.8L, Globulin 3.8, Albumin/Globulin Ratio 0.7L Current Medications Medications (Trade) Dose Ordered Sig/Becky Route PRN Reason Start Time Stop Time Status Last Admin Dose Admin Acetaminophen (Tylenol) 650 mg Q4H PRN ORAL Temp >100.5 06/14/20 13:45 07/14/20 13:44 Acetaminophen (Tylenol) 650 mg Q6H PRN ORAL headache & mild pain 06/14/20 14:00 07/14/20 09:59 06/16/20 17:28 Atenolol (Tenormin) 100 mg DAILY ORAL 06/14/20 14:45 07/14/20 14:44 06/18/20 08:08 Diphenhydramine HCl (Benadryl) 25 mg Q6H PRN ORAL Itching/Pruritis 06/14/20 13:45 07/14/20 13:44 Docusate Sodium (Colace) 100 mg THREE TIMES A DAY ORAL 06/16/20 18:00 07/16/20 17:59 06/18/20 08:08 Famotidine (Pepcid) 20 mg BID ORAL 06/14/20 18:00 09/12/20 17:59 06/18/20 08:07 Heparin Sodium (Porcine) (Heparin 5000 units/ml) 5,000 units EVERY 12 HOURS SUBQ 06/14/20 11:00 07/29/20 10:59 06/18/20 08:09 Iron Sucrose 100 mg/Sodium Chloride 60 ml @ 240 mls/hr BEDTIME IV 06/15/20 21:00 06/19/20 21:14 06/17/20 20:36 Loperamide HCl (Imodium) 4 mg Q4H PRN ORAL Diarrhea 06/14/20 13:45 07/14/20 13:44 Lorazepam (Ativan 2mg/ml 1ml) 0.5 mg Q4H PRN IV For Anxiety 06/14/20 13:45 06/21/20 13:44 Lorazepam (Ativan 2mg/ml 1ml) 1 mg Q4H PRN IV seizures 06/14/20 13:45 06/21/20 13:44 Morphine Sulfate (Morphine Sulfate) 2 mg Q6H PRN IVP Moderate Pain (Pain Scale 4-6) 06/14/20 13:46 06/21/20 13:45 06/18/20 05:31 Nitroglycerin (Ntg) 0.4 mg Q5M PRN SL Prn Chest Pain 06/14/20 13:45 07/14/20 13:44 Ondansetron HCl (Zofran) 4 mg Q6H PRN IVP Nausea & Vomiting 06/14/20 13:45 07/14/20 13:44 06/14/20 17:06 Pantoprazole (Protonix) 40 mg DAILY IVP 06/18/20 09:00 07/18/20 08:59 06/18/20 10:36 Polyethylene Glycol (Miralax) 17 gm DAILYPRN PRN ORAL Constipation 06/14/20 13:45 07/14/20 13:44 Potassium Chloride/Sodium Chloride 1,000 ml @ 75 mls/hr [id number] IV 06/14/20 14:00 07/14/20 13:59 06/18/20 11:36 Temazepam (Restoril) 15 mg HSPRN PRN ORAL Insomnia 06/14/20 13:45 06/21/20 13:44 06/17/20 20:36 Assessment/Plan Problems: (1) New onset seizure (2) Acute encephalopathy (3) Hyponatremia (4) Anemia Assessment/Plan feels better today Na is normal now seizure precaution neuro evaluation hyponatremia w/u check Na in am dvt prophylaxis. awaiting neuro evaluation Emma Mcfarlane MD Jun 18, 2020 12:30
--- NOTE | 2020-06-18 13:20 | Nephrology Progress Note ---
Assessment/Plan Problem List: (1) Hyponatremia (2) New onset seizure (3) Anemia Assessment Hyponatremia, improving Seizure disorder Anemia Plan Stable from renal standpoint of view Previously: Urine studies including urine osmolality and urine for tox screen Normal saline infusion Check uric acid TSH Anemia work-up, suggests a low iron and low B12 level. Will give IV iron and subcu B12 Subjective ROS Limited/Unobtainable: No Constitutional: Reports: malaise Objective Objective Last 24 Hour Vital Signs Date Time Temp Pulse Resp B/P (MAP) Pulse Ox O2 Delivery O2 Flow Rate FiO2 06/18/20 11:57 98.1 69 18 116/64 (81) 94 06/18/20 10:36 Room Air 06/18/20 08:08 76 112/73 06/18/20 08:00 97.8 79 18 112/73 (86) 98 06/18/20 04:00 98.1 78 20 114/73 (87) 95 06/17/20 23:56 97.3 70 18 121/69 (86) 100 06/17/20 21:00 Room Air 06/17/20 20:00 97.7 68 18 110/72 (85) 99 06/17/20 16:00 98.1 81 17 108/63 (78) 100 Intake and Output 06/17/20 06/18/20 19:00 07:00 Intake Total 1455 ml 1185 ml Balance 1455 ml 1185 ml Intake Oral 630 ml 360 ml IV Total 825 ml 825 ml # Voids 3 1 Laboratory Tests 06/18/20 06:00: White Blood Count 3.5L, Red Blood Count 2.99L, Hemoglobin 8.9L, Hematocrit 28.0L , Mean Corpuscular Volume 93, Mean Corpuscular Hemoglobin 29.6, Mean Corpuscular Hemoglobin Concent 31.6L, Red Cell Distribution Width 26.6H, Platelet Count 137L, Mean Platelet Volume 5.5L, Neutrophils (%) (Auto) 45.8, Lymphocytes (%) (Auto) 38.0, Monocytes (%) (Auto) 13.2H, Eosinophils (%) (Auto) 1.9, Basophils (%) (Auto) 1.1, Sodium Level 142, Potassium Level 3.9, Chloride Level 110H, Carbon Dioxide Level 22, Anion Gap 10, Blood Urea Nitrogen 7, Creatinine 0.6, Estimat Glomerular Filtration Rate > 60, Glucose Level 91, Calcium Level 8.1L, Phosphorus Level 3.8, Magnesium Level 1.7L, Total Bilirubin 0.2, Aspartate Amino Transf (AST/SGOT) 69H, Alanine Aminotransferase (ALT/SGPT) 30, Alkaline Phosphatase 67, Total Protein 6.6, Albumin 2.8L, Globulin 3.8, Albumin/Globulin Ratio 0.7L Height (Feet): 5 Height (Inches): 7.00 Weight (Pounds): 162 General Appearance: no apparent distress Objective No change Jose Miguel Villa MD Jun 18, 2020 13:20
[2020-06-18 16:07] VITALS: BP 123/83
--- NOTE | 2020-06-18 18:33 | Internal Med Progress Note ---
Subjective Date of Service: Jun 18, 2020 Physician Name DashaRamos Attending Physician Orville Edward MD Current Medications Medications (Trade) Dose Ordered Sig/Becky Route PRN Reason Start Time Stop Time Status Last Admin Dose Admin Acetaminophen (Tylenol) 650 mg Q4H PRN ORAL Temp >100.5 06/14/20 13:45 07/14/20 13:44 Acetaminophen (Tylenol) 650 mg Q6H PRN ORAL headache & mild pain 06/14/20 14:00 07/14/20 09:59 06/16/20 17:28 Atenolol (Tenormin) 100 mg DAILY ORAL 06/14/20 14:45 07/14/20 14:44 06/18/20 08:08 Diphenhydramine HCl (Benadryl) 25 mg Q6H PRN ORAL Itching/Pruritis 06/14/20 13:45 07/14/20 13:44 Docusate Sodium (Colace) 100 mg THREE TIMES A DAY ORAL 06/16/20 18:00 07/16/20 17:59 06/18/20 17:17 Famotidine (Pepcid) 20 mg BID ORAL 06/14/20 18:00 09/12/20 17:59 06/18/20 17:17 Heparin Sodium (Porcine) (Heparin 5000 units/ml) 5,000 units EVERY 12 HOURS SUBQ 06/14/20 11:00 07/29/20 10:59 06/18/20 08:09 Iron Sucrose 100 mg/Sodium Chloride 60 ml @ 240 mls/hr BEDTIME IV 06/15/20 21:00 06/19/20 21:14 06/17/20 20:36 Loperamide HCl (Imodium) 4 mg Q4H PRN ORAL Diarrhea 06/14/20 13:45 07/14/20 13:44 Lorazepam (Ativan 2mg/ml 1ml) 0.5 mg Q4H PRN IV For Anxiety 06/14/20 13:45 06/21/20 13:44 Lorazepam (Ativan 2mg/ml 1ml) 1 mg Q4H PRN IV seizures 06/14/20 13:45 06/21/20 13:44 Morphine Sulfate (Morphine Sulfate) 2 mg Q6H PRN IVP Moderate Pain (Pain Scale 4-6) 06/14/20 13:46 06/21/20 13:45 06/18/20 05:31 Nitroglycerin (Ntg) 0.4 mg Q5M PRN SL Prn Chest Pain 06/14/20 13:45 07/14/20 13:44 Ondansetron HCl (Zofran) 4 mg Q6H PRN IVP Nausea & Vomiting 06/14/20 13:45 07/14/20 13:44 06/14/20 17:06 Pantoprazole (Protonix) 40 mg DAILY IVP 06/18/20 09:00 07/18/20 08:59 06/18/20 10:36 Polyethylene Glycol (Miralax) 17 gm DAILYPRN PRN ORAL Constipation 06/14/20 13:45 07/14/20 13:44 Potassium Chloride/Sodium Chloride 1,000 ml @ 75 mls/hr [id number] IV 06/14/20 14:00 07/14/20 13:59 06/18/20 11:36 Temazepam (Restoril) 15 mg HSPRN PRN ORAL Insomnia 06/14/20 13:45 06/21/20 13:44 06/17/20 20:36 Allergies: Coded Allergies: ASPIRIN (Verified Allergy, Unknown, 08/20/10) CODEINE (Verified Allergy, Unknown, 08/20/10) PENICILLINS (Verified Allergy, Unknown, 08/20/10) ROS Limited/Unobtainable: No Constitutional: Reports: no symptoms HEENT: Reports: no symptoms Cardiovascular: Reports: no symptoms Respiratory: Reports: no symptoms Gastrointestinal/Abdominal: Reports: no symptoms Genitourinary: Reports: no symptoms Neurologic/Psychiatric: Reports: no symptoms Subjective 64 YO F admitted with new onset seizure. Now hyponatremia and anemia. Cover for Int Gary-Dr Edward Objective Last Vital Signs Date Time Temp Pulse Resp B/P (MAP) Pulse Ox O2 Delivery O2 Flow Rate FiO2 06/18/20 16:07 97.5 75 18 123/83 (96) 98 06/18/20 10:36 Room Air Laboratory Tests Test 06/18/20 06:00 White Blood Count 3.5 K/UL (4.8-10.8) L Red Blood Count 2.99 M/UL (4.20-5.40) L Hemoglobin 8.9 G/DL (12.0-16.0) L Hematocrit 28.0 % (37.0-47.0) L Mean Corpuscular Volume 93 FL (80-99) Mean Corpuscular Hemoglobin 29.6 PG (27.0-31.0) Mean Corpuscular Hemoglobin Concent 31.6 G/DL (32.0-36.0) L Red Cell Distribution Width 26.6 % (11.6-14.8) H Platelet Count 137 K/UL (150-450) L Mean Platelet Volume 5.5 FL (6.5-10.1) L Neutrophils (%) (Auto) 45.8 % (45.0-75.0) Lymphocytes (%) (Auto) 38.0 % (20.0-45.0) Monocytes (%) (Auto) 13.2 % (1.0-10.0) H Eosinophils (%) (Auto) 1.9 % (0.0-3.0) Basophils (%) (Auto) 1.1 % (0.0-2.0) Sodium Level 142 MMOL/L (136-145) Potassium Level 3.9 MMOL/L (3.5-5.1) Chloride Level 110 MMOL/L (98-107) H Carbon Dioxide Level 22 MMOL/L (21-32) Anion Gap 10 mmol/L (5-15) Blood Urea Nitrogen 7 mg/dL (7-18) Creatinine 0.6 MG/DL (0.55-1.30) Estimat Glomerular Filtration Rate > 60 mL/min (>60) Glucose Level 91 MG/DL (74-106) Calcium Level 8.1 MG/DL (8.5-10.1) L Phosphorus Level 3.8 MG/DL (2.5-4.9) Magnesium Level 1.7 MG/DL (1.8-2.4) L Total Bilirubin 0.2 MG/DL (0.2-1.0) Aspartate Amino Transf (AST/SGOT) 69 U/L (15-37) H Alanine Aminotransferase (ALT/SGPT) 30 U/L (12-78) Alkaline Phosphatase 67 U/L (46-116) Total Protein 6.6 G/DL (6.4-8.2) Albumin 2.8 G/DL (3.4-5.0) L Globulin 3.8 g/dL Albumin/Globulin Ratio 0.7 (1.0-2.7) L Intake and Output 06/17/20 06/18/20 19:00 07:00 Intake Total 1455 ml 1185 ml Balance 1455 ml 1185 ml Intake Oral 630 ml 360 ml IV Total 825 ml 825 ml # Voids 3 1 Objective Objective General: No acute distress, awake and alert HEENT: NCAT, sclera anicteric, PERRL, EOMI. Neck: Supple, no significant jugular venous distention, Lungs: Good inspiratory effort, no accessory muscle use, clear to auscultation bilaterally, no Wheeze or Rales. Heart: Regular rate and rhythm, normal S1/S2, no murmurs/gallops Abdomen: soft, generalized tenderness, nondistended. Normoactive bowel sounds. / Rectal: Refused and deferred. Extremities: No Cyanosis , clubbing or edema. Neuro: A&O x 3, Able to move all extremities Skin: warm, no rashes or lesions Psych: Normal mood and affect Assessment/Plan Assessment/Plan ASSESSMENT: This is a 64-year-old female: 1. New-onset seizure. 2. Hyponatremia-resolved 3. Iron def anemia 4. abdominal pain 5. pancytopenia TREATMENT: 1. New-onset seizure. ?due to hyponatremia? Patient has been placed empirically on intravenous lorazepam for seizure. An initial phenytoin level was negative. A Neurology consultation has been obtained with Dr. Andre Sesay. 2. Hyponatremia. ?dyazide diuretic vs SIADH? Reason for hyponatremia is unknown. Patient has been started empirically on normal saline and KCL intravenously. We will follow recommendations of Nephrology, Dr. Villa. 3. Anemia GI=Dr Abebe. GI workup in progress. Continue IV venofer and B12 Ramos Lou MD Jun 18, 2020 18:33
[2020-06-18 20:00] VITALS: BP 104/64
[2020-06-18] MEDS: Iron Sucrose 100 MG in NS 55 ML IV SCH (20:14)
[2020-06-19] VITALS (7 sets, daily range): BP systolic 98–120; BP diastolic 55–70
[2020-06-19] MEDS: NS w/KCl 20mEq 1000ml 1,000 ML IV SCH ×2 (00:05→15:38)
[2020-06-19] MEDS: Morphine Sulfate 2mg/ml Inj(IV/IM USE ONLY) IVP PRN ×3 (00:20→20:14)
[2020-06-19 06:32] LABS: HEMATOCRIT 27.4 % (37.0-47.0); HEMOGLOBIN 8.5 G/DL (12.0-16.0); MEAN CORPUSCULAR VOLUME 95 FL (80-99); PLATELET COUNT 159 K/UL (150-450); RED BLOOD COUNT 2.88 M/UL (4.20-5.40); RED CELL DISTRIBUTION WIDTH 27.7 % (11.6-14.8); WHITE BLOOD COUNT 2.5 K/UL (4.8-10.8)
[2020-06-19 06:35] LABS: ANION GAP 8 mmol/L (5-15); BLOOD UREA NITROGEN 6 mg/dL (7-18); CALCIUM 8.3 MG/DL (8.5-10.1); CARBON DIOXIDE 25 MMOL/L (21-32); CHLORIDE 111 MMOL/L (98-107); CREATININE 0.6 MG/DL (0.55-1.30); POTASSIUM 4.1 MMOL/L (3.5-5.1); SODIUM 144 MMOL/L (136-145)
[2020-06-19] MEDS: Pantoprazole Inj IVP SCH (08:50)
[2020-06-19] MEDS: Docusate 100mg cap ORAL SCH ×3 (08:50→18:10)
[2020-06-19] MEDS: Heparin 5000 units/ml inj SUBQ SCH ×2 (08:51→20:06)
--- NOTE | 2020-06-19 09:55 | Nephrology Progress Note ---
Assessment/Plan Problem List: (1) Hyponatremia (2) New onset seizure (3) Anemia Assessment Hyponatremia, improving Seizure disorder Anemia Plan Remains stable from renal standpoint of view. Serum sodium 144. Previously: Urine studies including urine osmolality and urine for tox screen Normal saline infusion Check uric acid TSH Anemia work-up, suggests a low iron and low B12 level. Will give IV iron and subcu B12 Subjective ROS Limited/Unobtainable: No Objective Objective Last 24 Hour Vital Signs Date Time Temp Pulse Resp B/P (MAP) Pulse Ox O2 Delivery O2 Flow Rate FiO2 06/19/20 09:06 Room Air 06/19/20 08:34 97.8 75 20 106/70 (82) 98 06/19/20 04:00 97.9 68 18 107/66 (80) 99 06/19/20 00:00 98.6 76 18 117/69 (85) 100 06/18/20 21:00 Room Air 06/18/20 20:00 98.2 73 20 104/64 (77) 100 06/18/20 16:07 97.5 75 18 123/83 (96) 98 06/18/20 11:57 98.1 69 18 116/64 (81) 94 06/18/20 10:36 Room Air Intake and Output 06/18/20 06/19/20 19:00 07:00 Intake Total 1235 ml 1245 ml Balance 1235 ml 1245 ml Intake Oral 360 ml 420 ml IV Total 875 ml 825 ml # Voids 2 2 # Bowel Movements 1 Laboratory Tests 06/19/20 05:50: White Blood Count 2.5L, Red Blood Count 2.88L, Hemoglobin 8.5L, Hematocrit 27.4L , Mean Corpuscular Volume 95, Mean Corpuscular Hemoglobin 29.4, Mean Corpuscular Hemoglobin Concent 30.9L, Red Cell Distribution Width 27.7H, Platelet Count 159, Mean Platelet Volume 5.3L, Neutrophils (%) (Auto) , Lymphocytes (%) (Auto) , Monocytes (%) (Auto) , Eosinophils (%) (Auto) , Basophils (%) (Auto) , Differential Total Cells Counted 100, Neutrophils % ( Manual) 34L, Lymphocytes % (Manual) 50H, Monocytes % (Manual) 15H, Eosinophils % (Manual) 1, Basophils % (Manual) 0, Band Neutrophils 0, Platelet Estimate Adequate, Platelet Morphology Normal, Polychromasia 1+, Hypochromasia 1+, Anisocytosis 3+, Sodium Level 144, Potassium Level 4.1, Chloride Level 111H, Carbon Dioxide Level 25, Anion Gap 8, Blood Urea Nitrogen 6L, Creatinine 0.6, Estimat Glomerular Filtration Rate > 60, Glucose Level 87, Calcium Level 8.3L Height (Feet): 5 Height (Inches): 7.00 Weight (Pounds): 162 General Appearance: no apparent distress Cardiovascular: normal rate Respiratory/Chest: lungs clear Abdomen: soft Objective No change Jose Miguel Villa MD Jun 19, 2020 09:55
--- NOTE | 2020-06-19 13:33 | Pulmonology Progress Note ---
Subjective ROS Limited/Unobtainable: No Constitutional: Reports: no symptoms HEENT: Repors: no symptoms Respiratory: Reports: no symptoms Allergies: Coded Allergies: ASPIRIN (Verified Allergy, Unknown, 08/20/10) CODEINE (Verified Allergy, Unknown, 08/20/10) PENICILLINS (Verified Allergy, Unknown, 08/20/10) Objective Last 24 Hour Vital Signs Date Time Temp Pulse Resp B/P (MAP) Pulse Ox O2 Delivery O2 Flow Rate FiO2 06/19/20 12:06 98.1 65 20 98/55 (69) 97 06/19/20 09:06 Room Air 06/19/20 09:00 65 98/55 06/19/20 08:34 97.8 75 20 106/70 (82) 98 06/19/20 04:00 97.9 68 18 107/66 (80) 99 06/19/20 00:00 98.6 76 18 117/69 (85) 100 06/18/20 21:00 Room Air 06/18/20 20:00 98.2 73 20 104/64 (77) 100 06/18/20 16:07 97.5 75 18 123/83 (96) 98 Intake and Output 06/18/20 06/19/20 19:00 07:00 Intake Total 1235 ml 1245 ml Balance 1235 ml 1245 ml Intake Oral 360 ml 420 ml IV Total 875 ml 825 ml # Voids 2 2 # Bowel Movements 1 General Appearance: WD/WN HEENT: normocephalic, atraumatic Respiratory: lungs clear, normal breath sounds Breasts: no masses Cardiovascular: regular rhythm Abdomen: normal bowel sounds, soft, non tender Genitourinary: normal external genitalia Extremities: no clubbing Skin: no rash Laboratory Tests 06/19/20 05:50: White Blood Count 2.5L, Red Blood Count 2.88L, Hemoglobin 8.5L, Hematocrit 27.4L , Mean Corpuscular Volume 95, Mean Corpuscular Hemoglobin 29.4, Mean Corpuscular Hemoglobin Concent 30.9L, Red Cell Distribution Width 27.7H, Platelet Count 159, Mean Platelet Volume 5.3L, Neutrophils (%) (Auto) , Lymphocytes (%) (Auto) , Monocytes (%) (Auto) , Eosinophils (%) (Auto) , Basophils (%) (Auto) , Differential Total Cells Counted 100, Neutrophils % ( Manual) 34L, Lymphocytes % (Manual) 50H, Monocytes % (Manual) 15H, Eosinophils % (Manual) 1, Basophils % (Manual) 0, Band Neutrophils 0, Platelet Estimate Adequate, Platelet Morphology Normal, Polychromasia 1+, Hypochromasia 1+, Anisocytosis 3+, Sodium Level 144, Potassium Level 4.1, Chloride Level 111H, Carbon Dioxide Level 25, Anion Gap 8, Blood Urea Nitrogen 6L, Creatinine 0.6, Estimat Glomerular Filtration Rate > 60, Glucose Level 87, Calcium Level 8.3L Current Medications Medications (Trade) Dose Ordered Sig/Becky Route PRN Reason Start Time Stop Time Status Last Admin Dose Admin Acetaminophen (Tylenol) 650 mg Q4H PRN ORAL Temp >100.5 06/14/20 13:45 07/14/20 13:44 Acetaminophen (Tylenol) 650 mg Q6H PRN ORAL headache & mild pain 06/14/20 14:00 07/14/20 09:59 06/16/20 17:28 Atenolol (Tenormin) 100 mg DAILY ORAL 06/14/20 14:45 07/14/20 14:44 06/18/20 08:08 Diphenhydramine HCl (Benadryl) 25 mg Q6H PRN ORAL Itching/Pruritis 06/14/20 13:45 07/14/20 13:44 Docusate Sodium (Colace) 100 mg THREE TIMES A DAY ORAL 06/16/20 18:00 07/16/20 17:59 06/19/20 13:13 Famotidine (Pepcid) 20 mg BID ORAL 06/14/20 18:00 09/12/20 17:59 06/19/20 08:50 Heparin Sodium (Porcine) (Heparin 5000 units/ml) 5,000 units EVERY 12 HOURS SUBQ 06/14/20 11:00 07/29/20 10:59 06/19/20 08:51 Iron Sucrose 100 mg/Sodium Chloride 60 ml @ 240 mls/hr BEDTIME IV 06/15/20 21:00 06/19/20 21:14 06/18/20 20:14 Loperamide HCl (Imodium) 4 mg Q4H PRN ORAL Diarrhea 06/14/20 13:45 07/14/20 13:44 Lorazepam (Ativan 2mg/ml 1ml) 0.5 mg Q4H PRN IV For Anxiety 06/14/20 13:45 06/21/20 13:44 Lorazepam (Ativan 2mg/ml 1ml) 1 mg Q4H PRN IV seizures 06/14/20 13:45 06/21/20 13:44 Morphine Sulfate (Morphine Sulfate) 2 mg Q6H PRN IVP Moderate Pain (Pain Scale 4-6) 06/14/20 13:46 06/21/20 13:45 06/19/20 06:48 Nitroglycerin (Ntg) 0.4 mg Q5M PRN SL Prn Chest Pain 06/14/20 13:45 07/14/20 13:44 Ondansetron HCl (Zofran) 4 mg Q6H PRN IVP Nausea & Vomiting 06/14/20 13:45 07/14/20 13:44 06/14/20 17:06 Pantoprazole (Protonix) 40 mg DAILY IVP 06/18/20 09:00 07/18/20 08:59 06/19/20 08:50 Polyethylene Glycol (Miralax) 17 gm DAILYPRN PRN ORAL Constipation 06/14/20 13:45 07/14/20 13:44 Potassium Chloride/Sodium Chloride 1,000 ml @ 75 mls/hr [id number] IV 06/14/20 14:00 07/14/20 13:59 06/19/20 00:05 Temazepam (Restoril) 15 mg HSPRN PRN ORAL Insomnia 06/14/20 13:45 06/21/20 13:44 06/18/20 20:21 Assessment/Plan Problems: (1) New onset seizure (2) Acute encephalopathy (3) Hyponatremia (4) Anemia Assessment/Plan feels better today Na is normal now seizure precaution neuro evaluation hyponatremia w/u check Na in am dvt prophylaxis. awaiting neuro evaluation and PT/ot evaluation Emma Mcfarlane MD Jun 19, 2020 13:33
--- NOTE | 2020-06-19 17:07 | Internal Med Progress Note ---
Subjective Date of Service: Jun 19, 2020 Physician Name Lou,Ramos Attending Physician Orville Edward MD Current Medications Medications (Trade) Dose Ordered Sig/Becky Route PRN Reason Start Time Stop Time Status Last Admin Dose Admin Acetaminophen (Tylenol) 650 mg Q4H PRN ORAL Temp >100.5 06/14/20 13:45 07/14/20 13:44 Acetaminophen (Tylenol) 650 mg Q6H PRN ORAL headache & mild pain 06/14/20 14:00 07/14/20 09:59 06/16/20 17:28 Atenolol (Tenormin) 100 mg DAILY ORAL 06/14/20 14:45 07/14/20 14:44 06/18/20 08:08 Diphenhydramine HCl (Benadryl) 25 mg Q6H PRN ORAL Itching/Pruritis 06/14/20 13:45 07/14/20 13:44 Docusate Sodium (Colace) 100 mg THREE TIMES A DAY ORAL 06/16/20 18:00 07/16/20 17:59 06/19/20 13:13 Famotidine (Pepcid) 20 mg BID ORAL 06/14/20 18:00 09/12/20 17:59 06/19/20 08:50 Heparin Sodium (Porcine) (Heparin 5000 units/ml) 5,000 units EVERY 12 HOURS SUBQ 06/14/20 11:00 07/29/20 10:59 06/19/20 08:51 Iron Sucrose 100 mg/Sodium Chloride 60 ml @ 240 mls/hr BEDTIME IV 06/15/20 21:00 06/19/20 21:14 06/18/20 20:14 Loperamide HCl (Imodium) 4 mg Q4H PRN ORAL Diarrhea 06/14/20 13:45 07/14/20 13:44 Lorazepam (Ativan 2mg/ml 1ml) 0.5 mg Q4H PRN IV For Anxiety 06/14/20 13:45 06/21/20 13:44 Lorazepam (Ativan 2mg/ml 1ml) 1 mg Q4H PRN IV seizures 06/14/20 13:45 06/21/20 13:44 Morphine Sulfate (Morphine Sulfate) 2 mg Q6H PRN IVP Moderate Pain (Pain Scale 4-6) 06/14/20 13:46 06/21/20 13:45 06/19/20 06:48 Nitroglycerin (Ntg) 0.4 mg Q5M PRN SL Prn Chest Pain 06/14/20 13:45 07/14/20 13:44 Ondansetron HCl (Zofran) 4 mg Q6H PRN IVP Nausea & Vomiting 06/14/20 13:45 07/14/20 13:44 06/14/20 17:06 Pantoprazole (Protonix) 40 mg DAILY IVP 06/18/20 09:00 07/18/20 08:59 06/19/20 08:50 Polyethylene Glycol (Miralax) 17 gm DAILYPRN PRN ORAL Constipation 06/14/20 13:45 07/14/20 13:44 Potassium Chloride/Sodium Chloride 1,000 ml @ 75 mls/hr [id number] IV 06/14/20 14:00 07/14/20 13:59 06/19/20 15:38 Temazepam (Restoril) 15 mg HSPRN PRN ORAL Insomnia 06/14/20 13:45 06/21/20 13:44 06/18/20 20:21 Allergies: Coded Allergies: ASPIRIN (Verified Allergy, Unknown, 08/20/10) CODEINE (Verified Allergy, Unknown, 08/20/10) PENICILLINS (Verified Allergy, Unknown, 08/20/10) ROS Limited/Unobtainable: No Constitutional: Reports: no symptoms HEENT: Reports: no symptoms Cardiovascular: Reports: no symptoms Respiratory: Reports: no symptoms Gastrointestinal/Abdominal: Reports: no symptoms Genitourinary: Reports: no symptoms Neurologic/Psychiatric: Reports: no symptoms Subjective 64 YO F admitted with new onset seizure. Now hyponatremia and anemia. Cover for Int Gary-Dr Edward Objective Last Vital Signs Date Time Temp Pulse Resp B/P (MAP) Pulse Ox O2 Delivery O2 Flow Rate FiO2 06/19/20 12:06 98.1 65 20 98/55 (69) 97 06/19/20 09:06 Room Air Laboratory Tests Test 06/19/20 05:50 White Blood Count 2.5 K/UL (4.8-10.8) L Red Blood Count 2.88 M/UL (4.20-5.40) L Hemoglobin 8.5 G/DL (12.0-16.0) L Hematocrit 27.4 % (37.0-47.0) L Mean Corpuscular Volume 95 FL (80-99) Mean Corpuscular Hemoglobin 29.4 PG (27.0-31.0) Mean Corpuscular Hemoglobin Concent 30.9 G/DL (32.0-36.0) L Red Cell Distribution Width 27.7 % (11.6-14.8) H Platelet Count 159 K/UL (150-450) Mean Platelet Volume 5.3 FL (6.5-10.1) L Neutrophils (%) (Auto) % (45.0-75.0) Lymphocytes (%) (Auto) % (20.0-45.0) Monocytes (%) (Auto) % (1.0-10.0) Eosinophils (%) (Auto) % (0.0-3.0) Basophils (%) (Auto) % (0.0-2.0) Differential Total Cells Counted 100 Neutrophils % (Manual) 34 % (45-75) L Lymphocytes % (Manual) 50 % (20-45) H Monocytes % (Manual) 15 % (1-10) H Eosinophils % (Manual) 1 % (0-3) Basophils % (Manual) 0 % (0-2) Band Neutrophils 0 % (0-8) Platelet Estimate Adequate Platelet Morphology Normal Polychromasia 1+ Hypochromasia 1+ Anisocytosis 3+ Sodium Level 144 MMOL/L (136-145) Potassium Level 4.1 MMOL/L (3.5-5.1) Chloride Level 111 MMOL/L (98-107) H Carbon Dioxide Level 25 MMOL/L (21-32) Anion Gap 8 mmol/L (5-15) Blood Urea Nitrogen 6 mg/dL (7-18) L Creatinine 0.6 MG/DL (0.55-1.30) Estimat Glomerular Filtration Rate > 60 mL/min (>60) Glucose Level 87 MG/DL (74-106) Calcium Level 8.3 MG/DL (8.5-10.1) L Intake and Output 06/18/20 06/19/20 19:00 07:00 Intake Total 1235 ml 1245 ml Balance 1235 ml 1245 ml Intake Oral 360 ml 420 ml IV Total 875 ml 825 ml # Voids 2 2 # Bowel Movements 1 Objective Objective General: No acute distress, awake and alert HEENT: NCAT, sclera anicteric, PERRL, EOMI. Neck: Supple, no significant jugular venous distention, Lungs: Good inspiratory effort, no accessory muscle use, clear to auscultation bilaterally, no Wheeze or Rales. Heart: Regular rate and rhythm, normal S1/S2, no murmurs/gallops Abdomen: soft, generalized tenderness, nondistended. Normoactive bowel sounds. / Rectal: Refused and deferred. Extremities: No Cyanosis , clubbing or edema. Neuro: A&O x 3, Able to move all extremities Skin: warm, no rashes or lesions Psych: Normal mood and affect Assessment/Plan Assessment/Plan ASSESSMENT: This is a 64-year-old female: 1. New-onset seizure. 2. Hyponatremia-resolved 3. Iron def anemia 4. abdominal pain 5. pancytopenia TREATMENT: 1. New-onset seizure. ?due to hyponatremia? Patient has been placed empirically on intravenous lorazepam for seizure. An initial phenytoin level was negative. A Neurology consultation has been obtained with Dr. Turner. 2. Hyponatremia. ?dyazide diuretic vs SIADH? Reason for hyponatremia is unknown. Patient has been started empirically on normal saline and KCL intravenously. We will follow recommendations of Nephrology, Dr. Villa. 3. Anemia GI=Dr Abebe. GI workup in progress. Continue IV venofer and B12 4. Await CT result-R/O malignancy Ramos Lou MD Jun 19, 2020 17:06
[2020-06-19] MEDS ORDERED: Vitamin B12 1000mcg/ml Inj IM SCH (18:00)
[2020-06-19] MEDS: Iron Sucrose 100 MG in NS 55 ML IV SCH (20:05)
--- NOTE | 2020-06-19 22:31 | General Progress Note ---
Assessment/Plan Assessment/Plan: Assessment - Epigastric pain - anemia - s/p PREETHI gastric bypass - mild diverticulosis - resolved hyponatremia - seizure Recommendation - po as tolerated - acid blockade - EGD later this week or as outpatient Subjective Allergies: Coded Allergies: ASPIRIN (Verified Allergy, Unknown, 08/20/10) CODEINE (Verified Allergy, Unknown, 08/20/10) PENICILLINS (Verified Allergy, Unknown, 08/20/10) Subjective Feels OK tolerating PO Objective Last 24 Hour Vital Signs Date Time Temp Pulse Resp B/P (MAP) Pulse Ox O2 Delivery O2 Flow Rate FiO2 06/19/20 21:00 Room Air 06/19/20 19:55 99.0 75 20 120/63 (82) 97 06/19/20 16:00 98.1 65 20 112/55 (74) 97 06/19/20 12:06 98.1 65 20 98/55 (69) 97 06/19/20 09:06 Room Air 06/19/20 09:00 65 98/55 06/19/20 08:34 97.8 75 20 106/70 (82) 98 06/19/20 04:00 97.9 68 18 107/66 (80) 99 06/19/20 00:00 98.6 76 18 117/69 (85) 100 Intake and Output 06/18/20 06/19/20 19:00 07:00 Intake Total 1235 ml 1245 ml Balance 1235 ml 1245 ml Intake Oral 360 ml 420 ml IV Total 875 ml 825 ml # Voids 2 2 # Bowel Movements 1 Laboratory Tests 06/19/20 05:50: White Blood Count 2.5L, Red Blood Count 2.88L, Hemoglobin 8.5L, Hematocrit 27.4L , Mean Corpuscular Volume 95, Mean Corpuscular Hemoglobin 29.4, Mean Corpuscular Hemoglobin Concent 30.9L, Red Cell Distribution Width 27.7H, Platelet Count 159, Mean Platelet Volume 5.3L, Neutrophils (%) (Auto) , Lymphocytes (%) (Auto) , Monocytes (%) (Auto) , Eosinophils (%) (Auto) , Basophils (%) (Auto) , Differential Total Cells Counted 100, Neutrophils % ( Manual) 34L, Lymphocytes % (Manual) 50H, Monocytes % (Manual) 15H, Eosinophils % (Manual) 1, Basophils % (Manual) 0, Band Neutrophils 0, Platelet Estimate Adequate, Platelet Morphology Normal, Polychromasia 1+, Hypochromasia 1+, Anisocytosis 3+, Sodium Level 144, Potassium Level 4.1, Chloride Level 111H, Carbon Dioxide Level 25, Anion Gap 8, Blood Urea Nitrogen 6L, Creatinine 0.6, Estimat Glomerular Filtration Rate > 60, Glucose Level 87, Calcium Level 8.3L Height (Feet): 5 Height (Inches): 7.00 Weight (Pounds): 162 Objective WDWN AA woman NCAT supple CTA RRR abd soft, mild epigastric TTP no edema Lee Abebe MD Jun 19, 2020 22:31
[2020-06-20] MEDS: Morphine Sulfate 2mg/ml Inj(IV/IM USE ONLY) IVP PRN ×3 (02:58→21:18)
[2020-06-20 04:00] VITALS: BP 107/61
[2020-06-20 06:36] LABS: HEMATOCRIT 24.9 % (37.0-47.0); HEMOGLOBIN 7.8 G/DL (12.0-16.0); MEAN CORPUSCULAR VOLUME 95 FL (80-99); PLATELET COUNT 211 K/UL (150-450); RED BLOOD COUNT 2.61 M/UL (4.20-5.40); RED CELL DISTRIBUTION WIDTH 27.5 % (11.6-14.8); WHITE BLOOD COUNT 2.7 K/UL (4.8-10.8)
[2020-06-20 07:17] LABS: ANION GAP 11 mmol/L (5-15); BLOOD UREA NITROGEN 5 mg/dL (7-18); CALCIUM 8.2 MG/DL (8.5-10.1); CARBON DIOXIDE 23 MMOL/L (21-32); CHLORIDE 111 MMOL/L (98-107); CREATININE 0.6 MG/DL (0.55-1.30); SODIUM 145 MMOL/L (136-145)
[2020-06-20 08:00] VITALS: BP 115/71
[2020-06-20] MEDS: Heparin 5000 units/ml inj SUBQ SCH ×2 (09:00→21:00)
[2020-06-20] MEDS: Docusate 100mg cap ORAL SCH ×3 (09:00→18:35)
[2020-06-20] MEDS ORDERED: Gadavist 7.5mMol/7.5ml vial IV PRN (09:45)
--- NOTE | 2020-06-20 10:44 | Nephrology Progress Note ---
Assessment/Plan Problem List: (1) Hyponatremia (2) New onset seizure (3) Anemia Assessment Hyponatremia, improving Seizure disorder Anemia Plan Remains stable from renal standpoint of view. Serum sodium 144. Previously: Urine studies including urine osmolality and urine for tox screen Normal saline infusion Check uric acid TSH Anemia work-up, suggests a low iron and low B12 level. Will give IV iron and subcu B12 Subjective ROS Limited/Unobtainable: No Constitutional: Reports: malaise Objective Objective Last 24 Hour Vital Signs Date Time Temp Pulse Resp B/P (MAP) Pulse Ox O2 Delivery O2 Flow Rate FiO2 06/20/20 04:00 98.1 79 20 107/61 (76) 94 06/19/20 23:58 99.1 77 18 106/63 (77) 98 06/19/20 21:00 Room Air 06/19/20 19:55 99.0 75 20 120/63 (82) 97 06/19/20 16:00 98.1 65 20 112/55 (74) 97 06/19/20 12:06 98.1 65 20 98/55 (69) 97 Intake and Output 06/19/20 06/20/20 19:00 07:00 Intake Total 920 ml Output Total 1200 ml Balance -280 ml Intake Oral 620 ml IV Total 300 ml Output Urine Total 1200 ml # Voids 4 2 # Bowel Movements 1 Laboratory Tests 06/20/20 06:05: White Blood Count 2.7L, Red Blood Count 2.61L, Hemoglobin 7.8L, Hematocrit 24.9L , Mean Corpuscular Volume 95, Mean Corpuscular Hemoglobin 29.7, Mean Corpuscular Hemoglobin Concent 31.2L, Red Cell Distribution Width 27.5H, Platelet Count 211, Mean Platelet Volume 5.6L, Neutrophils (%) (Auto) , Lymphocytes (%) (Auto) , Monocytes (%) (Auto) , Eosinophils (%) (Auto) , Basophils (%) (Auto) , Sodium [place] 145, Potassium Level 4.0, Chloride Level 111H, Carbon Dioxide Level 23, Anion Gap 11, Blood Urea Nitrogen 5L, Creatinine 0.6, Estimat Glomerular Filtration Rate > 60, Glucose Level 91, Calcium Level 8.2L Height (Feet): 5 Height (Inches): 7.00 Weight (Pounds): 162 General Appearance: no apparent distress Objective No change Fouladian,Jose Miguel MD Jun 20, 2020 10:44
[2020-06-20 12:29] VITALS: BP 123/71
--- NOTE | 2020-06-20 12:47 | Internal Med Progress Note ---
Subjective Date of Service: Jun 20, 2020 Physician Name Ramos Lou Attending Physician Orville Edward MD Current Medications Medications (Trade) Dose Ordered Sig/Becky Route PRN Reason Start Time Stop Time Status Last Admin Dose Admin Acetaminophen (Tylenol) 650 mg Q4H PRN ORAL Temp >100.5 06/14/20 13:45 07/14/20 13:44 Acetaminophen (Tylenol) 650 mg Q6H PRN ORAL headache & mild pain 06/14/20 14:00 07/14/20 09:59 06/16/20 17:28 Atenolol (Tenormin) 100 mg DAILY ORAL 06/14/20 14:45 07/14/20 14:44 06/20/20 12:38 Diphenhydramine HCl (Benadryl) 25 mg Q6H PRN ORAL Itching/Pruritis 06/14/20 13:45 07/14/20 13:44 Docusate Sodium (Colace) 100 mg THREE TIMES A DAY ORAL 06/16/20 18:00 07/16/20 17:59 06/20/20 12:37 Famotidine (Pepcid) 20 mg BID ORAL 06/14/20 18:00 09/12/20 17:59 06/20/20 12:42 Gadobutrol (Gadavist) 7.5 mmol NOW PRN IV Radiology Procedure 06/20/20 09:45 06/24/20 09:44 Heparin Sodium (Porcine) (Heparin 5000 units/ml) 5,000 units EVERY 12 HOURS SUBQ 06/14/20 11:00 07/29/20 10:59 06/19/20 20:06 Loperamide HCl (Imodium) 4 mg Q4H PRN ORAL Diarrhea 06/14/20 13:45 07/14/20 13:44 Lorazepam (Ativan 2mg/ml 1ml) 0.5 mg Q4H PRN IV For Anxiety 06/14/20 13:45 06/21/20 13:44 Lorazepam (Ativan 2mg/ml 1ml) 1 mg Q4H PRN IV seizures 06/14/20 13:45 06/21/20 13:44 Morphine Sulfate (Morphine Sulfate) 2 mg Q6H PRN IVP Moderate Pain (Pain Scale 4-6) 06/14/20 13:46 06/21/20 13:45 06/20/20 02:58 Nitroglycerin (Ntg) 0.4 mg Q5M PRN SL Prn Chest Pain 06/14/20 13:45 07/14/20 13:44 Ondansetron HCl (Zofran) 4 mg Q6H PRN IVP Nausea & Vomiting 06/14/20 13:45 07/14/20 13:44 06/14/20 17:06 Pantoprazole (Protonix) 40 mg DAILY ORAL 06/20/20 09:00 07/20/20 08:59 06/20/20 12:37 Polyethylene Glycol (Miralax) 17 gm DAILYPRN PRN ORAL Constipation 06/14/20 13:45 07/14/20 13:44 Temazepam (Restoril) 15 mg HSPRN PRN ORAL Insomnia 06/14/20 13:45 06/21/20 13:44 06/19/20 20:05 Allergies: Coded Allergies: ASPIRIN (Verified Allergy, Unknown, 08/20/10) CODEINE (Verified Allergy, Unknown, 08/20/10) PENICILLINS (Verified Allergy, Unknown, 08/20/10) ROS Limited/Unobtainable: No Constitutional: Reports: no symptoms HEENT: Reports: no symptoms Cardiovascular: Reports: no symptoms Respiratory: Reports: no symptoms Gastrointestinal/Abdominal: Reports: no symptoms Genitourinary: Reports: no symptoms Neurologic/Psychiatric: Reports: no symptoms Subjective 64 YO F admitted with new onset seizure. Now hyponatremia and anemia. Cover for Int Gary-Dr Edward Objective Last Vital Signs Date Time Temp Pulse Resp B/P (MAP) Pulse Ox O2 Delivery O2 Flow Rate FiO2 06/20/20 12:38 84 123/71 06/20/20 12:29 98.2 18 98 06/20/20 09:00 Room Air Laboratory Tests Test 06/20/20 06:05 White Blood Count 2.7 K/UL (4.8-10.8) L Red Blood Count 2.61 M/UL (4.20-5.40) L Hemoglobin 7.8 G/DL (12.0-16.0) L Hematocrit 24.9 % (37.0-47.0) L Mean Corpuscular Volume 95 FL (80-99) Mean Corpuscular Hemoglobin 29.7 PG (27.0-31.0) Mean Corpuscular Hemoglobin Concent 31.2 G/DL (32.0-36.0) L Red Cell Distribution Width 27.5 % (11.6-14.8) H Platelet Count 211 K/UL (150-450) Mean Platelet Volume 5.6 FL (6.5-10.1) L Neutrophils (%) (Auto) % (45.0-75.0) Lymphocytes (%) (Auto) % (20.0-45.0) Monocytes (%) (Auto) % (1.0-10.0) Eosinophils (%) (Auto) % (0.0-3.0) Basophils (%) (Auto) % (0.0-2.0) Sodium Level 145 MMOL/L (136-145) Potassium Level 4.0 MMOL/L (3.5-5.1) Chloride Level 111 MMOL/L (98-107) H Carbon Dioxide Level 23 MMOL/L (21-32) Anion Gap 11 mmol/L (5-15) Blood Urea Nitrogen 5 mg/dL (7-18) L Creatinine 0.6 MG/DL (0.55-1.30) Estimat Glomerular Filtration Rate > 60 mL/min (>60) Glucose Level 91 MG/DL (74-106) Calcium Level 8.2 MG/DL (8.5-10.1) L Intake and Output 06/19/20 06/20/20 19:00 07:00 Intake Total 920 ml Output Total 1200 ml Balance -280 ml Intake Oral 620 ml IV Total 300 ml Output Urine Total 1200 ml # Voids 4 2 # Bowel Movements 1 Objective Objective General: No acute distress, awake and alert HEENT: NCAT, sclera anicteric, PERRL, EOMI. Neck: Supple, no significant jugular venous distention, Lungs: Good inspiratory effort, no accessory muscle use, clear to auscultation bilaterally, no Wheeze or Rales. Heart: Regular rate and rhythm, normal S1/S2, no murmurs/gallops Abdomen: soft, generalized tenderness, nondistended. Normoactive bowel sounds. / Rectal: Refused and deferred. Extremities: No Cyanosis , clubbing or edema. Neuro: A&O x 3, Able to move all extremities Skin: warm, no rashes or lesions Psych: Normal mood and affect Assessment/Plan Assessment/Plan ASSESSMENT: This is a 64-year-old female: 1. New-onset seizure. 2. Hyponatremia-resolved 3. Iron def anemia 4. abdominal pain 5. pancytopenia TREATMENT: 1. New-onset seizure. ?due to hyponatremia? Patient has been placed empirically on intravenous lorazepam for seizure. An initial phenytoin level was negative. A Neurology consultation has been obtained with Dr. Turner. 2. Hyponatremia. ?dyazide diuretic vs SIADH? Reason for hyponatremia is unknown. Patient has been started empirically on normal saline and KCL intravenously. We will follow recommendations of Nephrology, Dr. Villa. 3. Anemia GI=Dr Abebe. GI workup in progress. Continue IV venofer and B12 4. Await CT chest result-R/O malignancy 5. Await MRI brain result Ramos Lou MD Jun 20, 2020 12:47
[2020-06-20 16:00] VITALS: BP 114/77
[2020-06-20 16:05] LABS: BASOPHILS % (AUTO) 1.9 % (0.0-2.0); EOSINOPHILS % (AUTO) 1.2 % (0.0-3.0); HEMOGLOBIN 8.4 G/DL (12.0-16.0); LYMPHOCYTES % (AUTO) 20.8 % (20.0-45.0); MEAN CORPUSCULAR VOLUME 97 FL (80-99); MONOCYTES % (AUTO) 14.2 % (1.0-10.0); PLATELET COUNT 230 K/UL (150-450); RED BLOOD COUNT 2.77 M/UL (4.20-5.40); RED CELL DISTRIBUTION WIDTH 28.1 % (11.6-14.8); WHITE BLOOD COUNT 3.8 K/UL (4.8-10.8)
--- NOTE | 2020-06-20 16:12 | Diagnostic Imaging Report ---
Indication: Seizure Technique: MRI the brain performed utilizing T1 sagittal, T2 axial, T1 FLAIR axial, T2 FLAIR axial, T2*GRE, coronal FSPGR, coronal T2 FLAIR and diffusion axial images without gadolinium. Axial, coronal and sagittal T1 images were obtained following administration of IV gadolinium. Comparison: No prior MRI available for comparison. Correlation made to noncontrast CT of the head 10/28/2010 Findings: Motion degraded exam. Within these limitations: No diffusion abnormalities are seen on diffusion weighted imaging. Symmetric foci of susceptibility noted in the bilateral basal ganglia likely related to basal ganglia calcifications. No evidence to suggest acute intracranial hemorrhage. No extra-axial collection of fluid or blood. The sulci, ventricles and cisterns are mildly prominent consistent with mild atrophy. Periventricular and supratentorial white matter T2 hyperintensity are seen without mass effect. There is no shift of midline structures. No abnormal mass effect. Coronal imaging demonstrates no asymmetric atrophy or asymmetric signal changes in the bilateral medial temporal lobes. Postcontrast imaging demonstrates no definite focus of abnormal postcontrast enhancement. Expected signal flow voids are seen of the vessels of the skull base. Visualized mastoid air cells are clear. Mild paranasal sinus mucosal thickening. No focal bony calvarium or soft tissue lesions are seen. IMPRESSION: No acute intracranial abnormality. Specifically, no evidence of acute infarct. No mass effect or focus of abnormal postcontrast enhancement.
--- NOTE | 2020-06-20 16:58 | Diagnostic Imaging Report ---
Indication: Chest and abdominal pain. Seizures. Hyponatremia. Assess for mass. Technique: CT of the chest, abdomen and pelvis utilizing automated exposure control with intravenous contrast. Venous scanning performed. Axial, sagittal and coronal reformats presented. CT dose: Total DLP 657.8 mGycm; CTDI vol 79 mGy Comparison: CT of the abdomen and pelvis 06/16/2020 Findings: CT chest: Mild dependent atelectatic changes noted in the lung bases. There is no focal correlation. No pleural effusion or pneumothorax. There is a calcified granuloma in the right lower lobe. Otherwise there is no discrete lung nodule. Imaged portions of the thyroid grossly unremarkable in appearance. Heart size within normal limits. No pericardial effusion. No pathologically enlarged mediastinal lymphadenopathy. There is a small hiatal hernia. There is thickening of the wall the distal esophagus. Thoracic aorta and main pulmonary artery normal in caliber. No saddle or large central pulmonary embolism identified. There is slight asymmetric nodularity of the right breast. CT abdomen/pelvis: Multiple well-circumscribed low-attenuation lesions noted with liver most likely representing cysts largest is in the hepatic dome measuring approximately 2.6 cm. Hepatic contour is smooth. Patient status post cholecystectomy. There is biliary ductal prominence. Spleen demonstrates punctate calcifications but is otherwise unremarkable. Adrenal glands and pancreas unremarkable in appearance. There are cysts in the left kidney, larger measures approximately 3 cm. No hydronephrosis or urinary tract stone. Bladder is decompressed, precluding reliable evaluation. Significant uterine atrophy versus supracervical hysterectomy. There is no free intraperitoneal air or fluid. Patient again noted to be status post gastric bypass. No evidence of small bowel obstruction. There is colonic diverticulosis without evidence of acute diverticulitis. Mild prominence of the tip of the appendix however there are no periappendiceal inflammatory changes. Similar findings were noted previously. There is a small fat-containing umbilical and supraumbilical ventral hernias. Abdominal aorta is normal in caliber. No conglomerate lymphadenopathy is identified. Bones are demineralized. There is scoliosis and multilevel degenerative changes of the spine. No acute osseous abnormality. No aggressive/destructive bone lesion. IMPRESSION: * Postoperative changes related to prior gastric bypass. Small hiatal hernia. Thickening of the distal esophagus which may related to esophagitis. * Hepatic and renal cysts. * Status post cholecystectomy. Biliary ductal prominence may be related to postcholecystectomy state. Correlation with LFTs however is recommended. * Diverticulosis without evidence of acute diverticulitis. * Nonspecific prominence of the tip of the appendix. No discrete periappendiceal inflammatory changes. Similar findings were noted previously. * Small fat-containing umbilical and supraumbilical ventral hernias. * Slight asymmetric nodularity of the right breast. Correlation with findings of most recent mammogram recommended. If none performed recently and recommend routine screening mammogram. The CT scanner at [facility] is accredited by the [employer] and the scans are performed using protocols designed to limit radiation exposure to as low as reasonably achievable to attain images of sufficient resolution adequate for diagnostic evaluation.
--- NOTE | 2020-06-20 17:30 | Pulmonology Progress Note ---
Subjective ROS Limited/Unobtainable: No Constitutional: Reports: no symptoms HEENT: Repors: no symptoms Respiratory: Reports: no symptoms Allergies: Coded Allergies: ASPIRIN (Verified Allergy, Unknown, 08/20/10) CODEINE (Verified Allergy, Unknown, 08/20/10) PENICILLINS (Verified Allergy, Unknown, 08/20/10) Objective Last 24 Hour Vital Signs Date Time Temp Pulse Resp B/P (MAP) Pulse Ox O2 Delivery O2 Flow Rate FiO2 06/20/20 12:38 84 123/71 06/20/20 12:29 98.2 84 18 123/71 (88) 98 06/20/20 09:00 Room Air 06/20/20 08:00 97.5 72 18 115/71 (86) 98 06/20/20 04:00 98.1 79 20 107/61 (76) 94 06/19/20 23:58 99.1 77 18 106/63 (77) 98 06/19/20 21:00 Room Air 06/19/20 19:55 99.0 75 20 120/63 (82) 97 Intake and Output 06/19/20 06/20/20 19:00 07:00 Intake Total 920 ml Output Total 1200 ml Balance -280 ml Intake Oral 620 ml IV Total 300 ml Output Urine Total 1200 ml # Voids 4 2 # Bowel Movements 1 General Appearance: WD/WN HEENT: normocephalic, atraumatic Respiratory: lungs clear, normal breath sounds Breasts: no masses Cardiovascular: regular rhythm Abdomen: normal bowel sounds, soft, non tender Genitourinary: normal external genitalia Extremities: no clubbing Skin: no rash Laboratory Tests 06/20/20 06:05: White Blood Count 2.7L, Red Blood Count 2.61L, Hemoglobin 7.8L, Hematocrit 24.9L , Mean Corpuscular Volume 95, Mean Corpuscular Hemoglobin 29.7, Mean Corpuscular Hemoglobin Concent 31.2L, Red Cell Distribution Width 27.5H, Platelet Count 211, Mean Platelet Volume 5.6L, Neutrophils (%) (Auto) , Lymphocytes (%) (Auto) , Monocytes (%) (Auto) , Eosinophils (%) (Auto) , Basophils (%) (Auto) , Sodium Level 145, Potassium Level 4.0, Chloride Level 111H, Carbon Dioxide Level 23, Anion Gap 11, Blood Urea Nitrogen 5L, Creatinine 0.6, Estimat Glomerular Filtration Rate > 60, Glucose Level 91, Calcium Level 8.2L 06/20/20 15:30: White Blood Count 3.8L, Red Blood Count 2.77L, Hemoglobin 8.4L, Hematocrit 27.0L , Mean Corpuscular Volume 97, Mean Corpuscular Hemoglobin 30.1, Mean Corpuscular Hemoglobin Concent 31.0L, Red Cell Distribution Width 28.1H, Platelet Count 230, Mean Platelet Volume 5.5L, Neutrophils (%) (Auto) 62.0, Lymphocytes (%) (Auto) 20.8, Monocytes (%) (Auto) 14.2H, Eosinophils (%) (Auto) 1.2, Basophils (%) (Auto) 1.9 Current Medications Medications (Trade) Dose Ordered Sig/Becky Route PRN Reason Start Time Stop Time Status Last Admin Dose Admin Acetaminophen (Tylenol) 650 mg Q4H PRN ORAL Temp >100.5 06/14/20 13:45 07/14/20 13:44 Acetaminophen (Tylenol) 650 mg Q6H PRN ORAL headache & mild pain 06/14/20 14:00 07/14/20 09:59 06/16/20 17:28 Atenolol (Tenormin) 100 mg DAILY ORAL 06/14/20 14:45 07/14/20 14:44 06/20/20 12:38 Diphenhydramine HCl (Benadryl) 25 mg Q6H PRN ORAL Itching/Pruritis 06/14/20 13:45 07/14/20 13:44 Docusate Sodium (Colace) 100 mg THREE TIMES A DAY ORAL 06/16/20 18:00 07/16/20 17:59 06/20/20 12:37 Famotidine (Pepcid) 20 mg BID ORAL 06/14/20 18:00 09/12/20 17:59 06/20/20 12:42 Gadobutrol (Gadavist) 7.5 mmol NOW PRN IV Radiology Procedure 06/20/20 09:45 06/24/20 09:44 Heparin Sodium (Porcine) (Heparin 5000 units/ml) 5,000 units EVERY 12 HOURS SUBQ 06/14/20 11:00 07/29/20 10:59 06/19/20 20:06 Loperamide HCl (Imodium) 4 mg Q4H PRN ORAL Diarrhea 06/14/20 13:45 07/14/20 13:44 Lorazepam (Ativan 2mg/ml 1ml) 0.5 mg Q4H PRN IV For Anxiety 06/14/20 13:45 06/21/20 13:44 Lorazepam (Ativan 2mg/ml 1ml) 1 mg Q4H PRN IV seizures 06/14/20 13:45 06/21/20 13:44 Morphine Sulfate (Morphine Sulfate) 2 mg Q6H PRN IVP Moderate Pain (Pain Scale 4-6) 06/14/20 13:46 06/21/20 13:45 06/20/20 15:40 Nitroglycerin (Ntg) 0.4 mg Q5M PRN SL Prn Chest Pain 06/14/20 13:45 07/14/20 13:44 Ondansetron HCl (Zofran) 4 mg Q6H PRN IVP Nausea & Vomiting 06/14/20 13:45 07/14/20 13:44 06/14/20 17:06 Pantoprazole (Protonix) 40 mg DAILY ORAL 06/20/20 09:00 07/20/20 08:59 06/20/20 12:37 Polyethylene Glycol (Miralax) 17 gm DAILYPRN PRN ORAL Constipation 06/14/20 13:45 07/14/20 13:44 Temazepam (Restoril) 15 mg HSPRN PRN ORAL Insomnia 06/14/20 13:45 06/21/20 13:44 06/19/20 20:05 Assessment/Plan Problems: (1) New onset seizure (2) Acute encephalopathy (3) Hyponatremia (4) Anemia Assessment/Plan feels better today Na is normal now seizure precaution neuro evaluation hyponatremia w/u check Na in am dvt prophylaxis. CT abdomen reviewed: IMPRESSION: * Postoperative changes related to prior gastric bypass. Emma Mcfarlane MD Jun 20, 2020 17:30
[2020-06-20] MEDS ORDERED: LORazepam Inj 2mg/ml 1ml IV PRN ×2 (18:20→18:30)
[2020-06-20 20:00] VITALS: BP 113/77
--- NOTE | 2020-06-20 23:04 | General Progress Note ---
Subjective Allergies: Coded Allergies: ASPIRIN (Verified Allergy, Unknown, 08/20/10) CODEINE (Verified Allergy, Unknown, 08/20/10) PENICILLINS (Verified Allergy, Unknown, 08/20/10) Subjective Feels OK tolerating PO Objective Last 24 Hour Vital Signs Date Time Temp Pulse Resp B/P (MAP) Pulse Ox O2 Delivery O2 Flow Rate FiO2 06/20/20 21:00 Room Air 06/20/20 20:00 98.4 77 18 113/77 (89) 98 06/20/20 16:00 97.2 75 20 114/77 (89) 98 06/20/20 12:38 84 123/71 06/20/20 12:29 98.2 84 18 123/71 (88) 98 06/20/20 09:00 Room Air 06/20/20 08:00 97.5 72 18 115/71 (86) 98 06/20/20 04:00 98.1 79 20 107/61 (76) 94 06/19/20 23:58 99.1 77 18 106/63 (77) 98 Intake and Output 06/19/20 06/20/20 19:00 07:00 Intake Total 920 ml Output Total 1200 ml Balance -280 ml Intake Oral 620 ml IV Total 300 ml Output Urine Total 1200 ml # Voids 4 2 # Bowel Movements 1 Laboratory Tests 06/20/20 06:05: White Blood Count 2.7L, Red Blood Count 2.61L, Hemoglobin 7.8L, Hematocrit 24.9L , Mean Corpuscular Volume 95, Mean Corpuscular Hemoglobin 29.7, Mean Corpuscular Hemoglobin Concent 31.2L, Red Cell Distribution Width 27.5H, Platelet Count 211, Mean Platelet Volume 5.6L, Neutrophils (%) (Auto) , Lymphocytes (%) (Auto) , Monocytes (%) (Auto) , Eosinophils (%) (Auto) , Basophils (%) (Auto) , Sodium Level 145, Potassium Level 4.0, Chloride Level 111H, Carbon Dioxide Level 23, Anion Gap 11, Blood Urea Nitrogen 5L, Creatinine 0.6, Estimat Glomerular Filtration Rate > 60, Glucose Level 91, Calcium Level 8.2L 06/20/20 15:30: White Blood Count 3.8L, Red Blood Count 2.77L, Hemoglobin 8.4L, Hematocrit 27.0L , Mean Corpuscular Volume 97, Mean Corpuscular Hemoglobin 30.1, Mean Corpuscular Hemoglobin Concent 31.0L, Red Cell Distribution Width 28.1H, Platelet Count 230, Mean Platelet Volume 5.5L, Neutrophils (%) (Auto) 62.0, Lymphocytes (%) (Auto) 20.8, Monocytes (%) (Auto) 14.2H, Eosinophils (%) (Auto) 1.2, Basophils (%) (Auto) 1.9 Height (Feet): 5 Height (Inches): 7.00 Weight (Pounds): 162 Objective WDWN AA woman NCAT supple CTA RRR abd soft, mild epigastric TTP no edema Assessment/Plan Assessment/Plan: Assessment - Epigastric pain - anemia - s/p PREETHI gastric bypass - mild diverticulosis - resolved hyponatremia - seizure Recommendation - po as tolerated - acid blockade - EGD as outpatient Lee Abebe MD Jun 20, 2020 23:04
[2020-06-21] VITALS (8 sets, daily range): BP systolic 93–137; BP diastolic 51–82
[2020-06-21] MEDS: Morphine Sulfate 2mg/ml Inj(IV/IM USE ONLY) IVP PRN ×2 (03:38→21:26)
[2020-06-21 06:49] LABS: HEMATOCRIT 24.6 % (37.0-47.0); HEMOGLOBIN 7.7 G/DL (12.0-16.0); MEAN CORPUSCULAR VOLUME 94 FL (80-99); PLATELET COUNT 232 K/UL (150-450); RED BLOOD COUNT 2.61 M/UL (4.20-5.40); RED CELL DISTRIBUTION WIDTH 26.9 % (11.6-14.8); WHITE BLOOD COUNT 3.1 K/UL (4.8-10.8)
[2020-06-21 07:07] LABS: ANION GAP 8 mmol/L (5-15); BLOOD UREA NITROGEN 6 mg/dL (7-18); CARBON DIOXIDE 26 MMOL/L (21-32); CHLORIDE 108 MMOL/L (98-107); CREATININE 0.6 MG/DL (0.55-1.30); POTASSIUM 3.7 MMOL/L (3.5-5.1); SODIUM 142 MMOL/L (136-145)
[2020-06-21] MEDS: Docusate 100mg cap ORAL SCH ×3 (08:35→17:13)
[2020-06-21] MEDS: Heparin 5000 units/ml inj SUBQ SCH ×3 (08:36→21:19)
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
--- NOTE | 2020-06-21 10:46 | Nephrology Progress Note ---
Assessment/Plan Problem List: (1) Hyponatremia (2) New onset seizure (3) Anemia Assessment Hyponatremia, improving Seizure disorder Anemia Plan June 21: Renal parameters stable. Hemoglobin lower. Due for transfusion. Serum sodium stable. Continue per PMD and consultants. Remains stable from renal standpoint of view. Serum sodium 144. Previously: Urine studies including urine osmolality and urine for tox screen Normal saline infusion Check uric acid TSH Anemia work-up, suggests a low iron and low B12 level. Will give IV iron and subcu B12 Subjective ROS Limited/Unobtainable: No Objective Objective Last 24 Hour Vital Signs Date Time Temp Pulse Resp B/P (MAP) Pulse Ox O2 Delivery O2 Flow Rate FiO2 06/21/20 08:35 76 117/67 06/21/20 08:00 97.9 76 18 117/67 (84) 97 06/21/20 08:00 Room Air 06/21/20 04:00 98.1 74 18 115/69 (84) 100 06/21/20 00:00 97.9 69 18 93/60 (71) 98 06/20/20 21:00 Room Air 06/20/20 20:00 98.4 77 18 113/77 (89) 98 06/20/20 16:00 97.2 75 20 114/77 (89) 98 06/20/20 12:38 84 123/71 06/20/20 12:29 98.2 84 18 123/71 (88) 98 Intake and Output 06/20/20 06/21/20 19:00 07:00 Intake Total 820 ml 360 ml Balance 820 ml 360 ml Intake Oral 820 ml Other 360 ml # Voids 5 2 # Bowel Movements 1 Laboratory Tests 06/20/20 15:30: White Blood Count 3.8L, Red Blood Count 2.77L, Hemoglobin 8.4L, Hematocrit 27.0L , Mean Corpuscular Volume 97, Mean Corpuscular Hemoglobin 30.1, Mean Corpuscular Hemoglobin Concent 31.0L, Red Cell Distribution Width 28.1H, Platelet Count 230, Mean Platelet Volume 5.5L, Neutrophils (%) (Auto) 62.0, Lymphocytes (%) (Auto) 20.8, Monocytes (%) (Auto) 14.2H, Eosinophils (%) (Auto) 1.2, Basophils (%) (Auto) 1.9 06/21/20 05:30: White Blood Count 3.1L, Red Blood Count 2.61L, Hemoglobin 7.7L, Hematocrit 24.6L , Mean Corpuscular Volume 94, Mean Corpuscular Hemoglobin 29.6, Mean Corpuscular Hemoglobin Concent 31.4L, Red Cell Distribution Width 26.9H, Platelet Count 232, Mean Platelet Volume 5.1L, Neutrophils (%) (Auto) , Lymphocytes (%) (Auto) , Monocytes (%) (Auto) , Eosinophils (%) (Auto) , Basophils (%) (Auto) , Neutrophils % (Manual) [Pending], Lymphocytes % (Manual) [Pending], Platelet Estimate [Pending], Platelet Morphology [Pending], Sodium Level 142, Potassium Level 3.7, Chloride Level 108H, Carbon Dioxide Level 26, Anion Gap 8, Blood Urea Nitrogen 6L, Creatinine 0.6, Estimat Glomerular Filtration Rate > 60, Glucose Level 82, Calcium Level 8.0L Height (Feet): 5 Height (Inches): 7.00 Weight (Pounds): 162 General Appearance: no apparent distress Objective No change Jose Miguel Villa MD Jun 21, 2020 10:46
--- NOTE | 2020-06-21 12:37 | Pulmonology Progress Note ---
Subjective ROS Limited/Unobtainable: No Constitutional: Reports: no symptoms HEENT: Repors: no symptoms Respiratory: Reports: no symptoms Allergies: Coded Allergies: ASPIRIN (Verified Allergy, Unknown, 08/20/10) CODEINE (Verified Allergy, Unknown, 08/20/10) PENICILLINS (Verified Allergy, Unknown, 08/20/10) Objective Last 24 Hour Vital Signs Date Time Temp Pulse Resp B/P (MAP) Pulse Ox O2 Delivery O2 Flow Rate FiO2 06/21/20 12:07 98.1 83 18 123/70 (87) 97 06/21/20 08:35 76 117/67 06/21/20 08:00 97.9 76 18 117/67 (84) 97 06/21/20 08:00 Room Air 06/21/20 04:00 98.1 74 18 115/69 (84) 100 06/21/20 00:00 97.9 69 18 93/60 (71) 98 06/20/20 21:00 Room Air 06/20/20 20:00 98.4 77 18 113/77 (89) 98 06/20/20 16:00 97.2 75 20 114/77 (89) 98 06/20/20 12:38 84 123/71 Intake and Output 06/20/20 06/21/20 19:00 07:00 Intake Total 820 ml 360 ml Balance 820 ml 360 ml Intake Oral 820 ml Other 360 ml # Voids 5 2 # Bowel Movements 1 General Appearance: WD/WN HEENT: normocephalic, atraumatic Respiratory: lungs clear, normal breath sounds Breasts: no masses Cardiovascular: regular rhythm Abdomen: normal bowel sounds, soft, non tender Genitourinary: normal external genitalia Extremities: no clubbing Skin: no rash Laboratory Tests 06/20/20 15:30: White Blood Count 3.8L, Red Blood Count 2.77L, Hemoglobin 8.4L, Hematocrit 27.0L , Mean Corpuscular Volume 97, Mean Corpuscular Hemoglobin 30.1, Mean Corpuscular Hemoglobin Concent 31.0L, Red Cell Distribution Width 28.1H, Platelet Count 230, Mean Platelet Volume 5.5L, Neutrophils (%) (Auto) 62.0, Lymphocytes (%) (Auto) 20.8, Monocytes (%) (Auto) 14.2H, Eosinophils (%) (Auto) 1.2, Basophils (%) (Auto) 1.9 06/21/20 05:30: White Blood Count 3.1L, Red Blood Count 2.61L, Hemoglobin 7.7L, Hematocrit 24.6L , Mean Corpuscular Volume 94, Mean Corpuscular Hemoglobin 29.6, Mean Corpuscular Hemoglobin Concent 31.4L, Red Cell Distribution Width 26.9H, Platelet Count 232, Mean Platelet Volume 5.1L, Neutrophils (%) (Auto) , Lymphocytes (%) (Auto) , Monocytes (%) (Auto) , Eosinophils (%) (Auto) , Basophils (%) (Auto) , Differential Total Cells Counted 100, Neutrophils % (Manual) 53, Lymphocytes % (Manual) 36, Monocytes % (Manual) 9, Eosinophils % (Manual) 0, Basophils % (Manual) 2, Band Neutrophils 0, Platelet Estimate Adequate, Platelet Morphology Normal, Hypochromasia 3+, Anisocytosis 4+, Sodium Level 142, Potassium Level 3.7, Chloride Level 108H, Carbon Dioxide Level 26, Anion Gap 8, Blood Urea Nitrogen 6L, Creatinine 0.6, Estimat Glomerular Filtration Rate > 60, Glucose Level 82, Calcium Level 8.0L Current Medications Medications (Trade) Dose Ordered Sig/Becky Route PRN Reason Start Time Stop Time Status Last Admin Dose Admin Acetaminophen (Tylenol) 650 mg Q4H PRN ORAL Temp >100.5 06/14/20 13:45 07/14/20 13:44 Acetaminophen (Tylenol) 650 mg Q6H PRN ORAL headache & mild pain 06/14/20 14:00 07/14/20 09:59 06/16/20 17:28 Atenolol (Tenormin) 100 mg DAILY ORAL 06/14/20 14:45 07/14/20 14:44 06/21/20 08:35 Diphenhydramine HCl (Benadryl) 25 mg Q6H PRN ORAL Itching/Pruritis 06/14/20 13:45 07/14/20 13:44 Docusate Sodium (Colace) 100 mg THREE TIMES A DAY ORAL 06/16/20 18:00 07/16/20 17:59 06/21/20 08:35 Famotidine (Pepcid) 20 mg BID ORAL 9/10/20 18:00 09/12/20 17:59 06/21/20 08:35 Gadobutrol (Gadavist) 7.5 mmol NOW PRN IV Radiology Procedure 06/20/20 09:45 06/24/20 09:44 Heparin Sodium (Porcine) (Heparin 5000 units/ml) 5,000 units EVERY 12 HOURS SUBQ 06/14/20 11:00 07/29/20 10:59 06/19/20 20:06 Loperamide HCl (Imodium) 4 mg Q4H PRN ORAL Diarrhea 06/14/20 13:45 07/14/20 13:44 Lorazepam (Ativan 2mg/ml 1ml) 0.5 mg Q4H PRN IV For Anxiety 06/20/20 18:20 06/27/20 18:19 Lorazepam (Ativan 2mg/ml 1ml) 1 mg Q4H PRN IV seizures 06/20/20 18:30 06/27/20 18:29 Morphine Sulfate (Morphine Sulfate) 2 mg Q6H PRN IVP Moderate Pain (Pain Scale 4-6) 06/20/20 21:40 06/27/20 21:39 06/21/20 03:38 Nitroglycerin (Ntg) 0.4 mg Q5M PRN SL Prn Chest Pain 06/14/20 13:45 07/14/20 13:44 Ondansetron HCl (Zofran) 4 mg Q6H PRN IVP Nausea & Vomiting 06/14/20 13:45 07/14/20 13:44 06/14/20 17:06 Pantoprazole (Protonix) 40 mg DAILY ORAL 06/20/20 09:00 07/20/20 08:59 06/21/20 08:35 Polyethylene Glycol (Miralax) 17 gm DAILYPRN PRN ORAL Constipation 06/14/20 13:45 07/14/20 13:44 Temazepam (Restoril) 15 mg HSPRN PRN ORAL Insomnia 06/20/20 18:15 06/27/20 18:14 06/20/20 21:12 Assessment/Plan Problems: (1) New onset seizure (2) Acute encephalopathy (3) Hyponatremia (4) Anemia Assessment/Plan prbc one unit today feels better today Na is normal now seizure precaution neuro evaluation dvt prophylaxis. CT abdomen reviewed: IMPRESSION: * Postoperative changes related to prior gastric bypass. Emma Mcfarlane MD Jun 21, 2020 12:37
--- NOTE | 2020-06-21 19:37 | General Progress Note ---
Subjective Allergies: Coded Allergies: ASPIRIN (Verified Allergy, Unknown, 08/20/10) CODEINE (Verified Allergy, Unknown, 08/20/10) PENICILLINS (Verified Allergy, Unknown, 08/20/10) Subjective Feels OK tolerating PO epigastric pain resolved Objective Last 24 Hour Vital Signs Date Time Temp Pulse Resp B/P (MAP) Pulse Ox O2 Delivery O2 Flow Rate FiO2 06/21/20 18:20 98.6 79 18 121/82 (95) 97 06/21/20 15:40 97.7 69 18 137/67 (90) 97 06/21/20 15:25 97.9 80 18 130/51 (77) 97 06/21/20 12:07 98.1 83 18 123/70 (87) 97 06/21/20 08:35 76 117/67 06/21/20 08:00 97.9 76 18 117/67 (84) 97 06/21/20 08:00 Room Air 06/21/20 04:00 98.1 74 18 115/69 (84) 100 06/21/20 00:00 97.9 69 18 93/60 (71) 98 06/20/20 21:00 Room Air 06/20/20 20:00 98.4 77 18 113/77 (89) 98 Intake and Output 06/20/20 06/21/20 19:00 07:00 Intake Total 820 ml 360 ml Balance 820 ml 360 ml Intake Oral 820 ml Other 360 ml # Voids 5 2 # Bowel Movements 1 Laboratory Tests 06/21/20 05:30: White Blood Count 3.1L, Red Blood Count 2.61L, Hemoglobin 7.7L, Hematocrit 24.6L , Mean Corpuscular Volume 94, Mean Corpuscular Hemoglobin 29.6, Mean Corpuscular Hemoglobin Concent 31.4L, Red Cell Distribution Width 26.9H, Platelet Count 232, Mean Platelet Volume 5.1L, Neutrophils (%) (Auto) , Lymphocytes (%) (Auto) , Monocytes (%) (Auto) , Eosinophils (%) (Auto) , Basophils (%) (Auto) , Differential Total Cells Counted 100, Neutrophils % (Manual) 53, Lymphocytes % (Manual) 36, Monocytes % (Manual) 9, Eosinophils % (Manual) 0, Basophils % (Manual) 2, Band Neutrophils 0, Platelet Estimate Adequate, Platelet Morphology Normal, Hypochromasia 3+, Anisocytosis 4+, Sodium Level 142, Potassium Level 3.7, Chloride Level 108H, Carbon Dioxide Level 26, Anion Gap 8, Blood Urea Nitrogen 6L, Creatinine 0.6, Estimat Glomerular Filtration Rate > 60, Glucose Level 82, Calcium Level 8.0L Height (Feet): 5 Height (Inches): 7.00 Weight (Pounds): 162 Objective WDWN AA woman NCAT supple CTA RRR abd soft, mild epigastric TTP no edema Assessment/Plan Assessment/Plan: Assessment - Epigastric pain - improved - anemia - s/p PREETHI gastric bypass - mild diverticulosis - resolved hyponatremia - seizure Recommendation - po as tolerated - acid blockade - EGD as outpatient Lee Abebe MD Jun 21, 2020 19:37
--- NOTE | 2020-06-21 20:01 | Internal Med Progress Note ---
Subjective Date of Service: Jun 21, 2020 Physician Name Ramos Lou Attending Physician Orville Edward MD Current Medications Medications (Trade) Dose Ordered Sig/Becky Route PRN Reason Start Time Stop Time Status Last Admin Dose Admin Acetaminophen (Tylenol) 650 mg Q4H PRN ORAL Temp >100.5 06/14/20 13:45 07/14/20 13:44 Acetaminophen (Tylenol) 650 mg Q6H PRN ORAL headache & mild pain 06/14/20 14:00 07/14/20 09:59 06/16/20 17:28 Atenolol (Tenormin) 100 mg DAILY ORAL 06/14/20 14:45 07/14/20 14:44 06/21/20 08:35 Diphenhydramine HCl (Benadryl) 25 mg Q6H PRN ORAL Itching/Pruritis 06/14/20 13:45 07/14/20 13:44 Docusate Sodium (Colace) 100 mg THREE TIMES A DAY ORAL 06/16/20 18:00 07/16/20 17:59 06/21/20 17:13 Famotidine (Pepcid) 20 mg BID ORAL 06/14/20 18:00 09/12/20 17:59 06/21/20 17:13 Gadobutrol (Gadavist) 7.5 mmol NOW PRN IV Radiology Procedure 06/20/20 09:45 06/24/20 09:44 Heparin Sodium (Porcine) (Heparin 5000 units/ml) 5,000 units EVERY 12 HOURS SUBQ 06/14/20 11:00 07/29/20 10:59 06/19/20 20:06 Loperamide HCl (Imodium) 4 mg Q4H PRN ORAL Diarrhea 06/14/20 13:45 07/14/20 13:44 Lorazepam (Ativan 2mg/ml 1ml) 0.5 mg Q4H PRN IV For Anxiety 06/20/20 18:20 06/27/20 18:19 Lorazepam (Ativan 2mg/ml 1ml) 1 mg Q4H PRN IV seizures 06/20/20 18:30 06/27/20 18:29 Morphine Sulfate (Morphine Sulfate) 2 mg Q6H PRN IVP Moderate Pain (Pain Scale 4-6) 06/20/20 21:40 06/27/20 21:39 06/21/20 03:38 Nitroglycerin (Ntg) 0.4 mg Q5M PRN SL Prn Chest Pain 06/14/20 13:45 07/14/20 13:44 Ondansetron HCl (Zofran) 4 mg Q6H PRN IVP Nausea & Vomiting 06/14/20 13:45 07/14/20 13:44 06/14/20 17:06 Pantoprazole (Protonix) 40 mg DAILY ORAL 06/20/20 09:00 07/20/20 08:59 06/21/20 08:35 Polyethylene Glycol (Miralax) 17 gm DAILYPRN PRN ORAL Constipation 06/14/20 13:45 07/14/20 13:44 Temazepam (Restoril) 15 mg HSPRN PRN ORAL Insomnia 06/20/20 18:15 06/27/20 18:14 06/20/20 21:12 Allergies: Coded Allergies: ASPIRIN (Verified Allergy, Unknown, 08/20/10) CODEINE (Verified Allergy, Unknown, 08/20/10) PENICILLINS (Verified Allergy, Unknown, 08/20/10) ROS Limited/Unobtainable: No Constitutional: Reports: no symptoms HEENT: Reports: no symptoms Cardiovascular: Reports: no symptoms Respiratory: Reports: no symptoms Gastrointestinal/Abdominal: Reports: no symptoms Genitourinary: Reports: no symptoms Neurologic/Psychiatric: Reports: no symptoms Subjective 64 YO F admitted with new onset seizure. Now hyponatremia and anemia. Cover for Int Gary-Dr Edward Objective Last Vital Signs Date Time Temp Pulse Resp B/P (MAP) Pulse Ox O2 Delivery O2 Flow Rate FiO2 06/21/20 18:20 98.6 79 18 121/82 (95) 97 06/21/20 08:00 Room Air Laboratory Tests Test 06/21/20 05:30 White Blood Count 3.1 K/UL (4.8-10.8) L Red Blood Count 2.61 M/UL (4.20-5.40) L Hemoglobin 7.7 G/DL (12.0-16.0) L Hematocrit 24.6 % (37.0-47.0) L Mean Corpuscular Volume 94 FL (80-99) Mean Corpuscular Hemoglobin 29.6 PG (27.0-31.0) Mean Corpuscular Hemoglobin Concent 31.4 G/DL (32.0-36.0) L Red Cell Distribution Width 26.9 % (11.6-14.8) H Platelet Count 232 K/UL (150-450) Mean Platelet Volume 5.1 FL (6.5-10.1) L Neutrophils (%) (Auto) % (45.0-75.0) Lymphocytes (%) (Auto) % (20.0-45.0) Monocytes (%) (Auto) % (1.0-10.0) Eosinophils (%) (Auto) % (0.0-3.0) Basophils (%) (Auto) % (0.0-2.0) Differential Total Cells Counted 100 Neutrophils % (Manual) 53 % (45-75) Lymphocytes % (Manual) 36 % (20-45) Monocytes % (Manual) 9 % (1-10) Eosinophils % (Manual) 0 % (0-3) Basophils % (Manual) 2 % (0-2) Band Neutrophils 0 % (0-8) Platelet Estimate Adequate Platelet Morphology Normal Hypochromasia 3+ Anisocytosis 4+ Sodium Level 142 MMOL/L (136-145) Potassium Level 3.7 MMOL/L (3.5-5.1) Chloride Level 108 MMOL/L (98-107) H Carbon Dioxide Level 26 MMOL/L (21-32) Anion Gap 8 mmol/L (5-15) Blood Urea Nitrogen 6 mg/dL (7-18) L Creatinine 0.6 MG/DL (0.55-1.30) Estimat Glomerular Filtration Rate > 60 mL/min (>60) Glucose Level 82 MG/DL (74-106) Calcium Level 8.0 MG/DL (8.5-10.1) L Intake and Output 06/20/20 06/21/20 19:00 07:00 Intake Total 820 ml 360 ml Balance 820 ml 360 ml Intake Oral 820 ml Other 360 ml # Voids 5 2 # Bowel Movements 1 Objective Objective General: No acute distress, awake and alert HEENT: NCAT, sclera anicteric, PERRL, EOMI. Neck: Supple, no significant jugular venous distention, Lungs: Good inspiratory effort, no accessory muscle use, clear to auscultation bilaterally, no Wheeze or Rales. Heart: Regular rate and rhythm, normal S1/S2, no murmurs/gallops Abdomen: soft, generalized tenderness, nondistended. Normoactive bowel sounds. / Rectal: Refused and deferred. Extremities: No Cyanosis , clubbing or edema. Neuro: A&O x 3, Able to move all extremities Skin: warm, no rashes or lesions Psych: Normal mood and affect Assessment/Plan Assessment/Plan ASSESSMENT: This is a 64-year-old female: 1. New-onset seizure. 2. Hyponatremia-resolved 3. Iron def anemia 4. abdominal pain 5. pancytopenia TREATMENT: 1. New-onset seizure. ?due to hyponatremia? Patient has been placed empirically on intravenous lorazepam for seizure. An initial phenytoin level was negative. A Neurology consultation has been obtained with Dr. Turner. 2. Hyponatremia. ?dyazide diuretic vs SIADH? Reason for hyponatremia is unknown. Patient has been started empirically on normal saline and KCL intravenously. We will follow recommendations of Nephrology, Dr. Villa. 3. Anemia GI=Dr Abebe. GI workup in progress. Continue IV venofer and B12 4. CT chest result= no evidence of malignancy 5. MRI brain result=no acute findings Ramos Lou MD Jun 21, 2020 20:01
[2020-06-22] VITALS: BP 119/72
[2020-06-22 04:00] VITALS: BP 117/73
[2020-06-22] MEDS: Morphine Sulfate 2mg/ml Inj(IV/IM USE ONLY) IVP PRN ×2 (05:43→13:07)
[2020-06-22 07:11] LABS: BASOPHILS % (AUTO) 1.4 % (0.0-2.0); EOSINOPHILS % (AUTO) 1.1 % (0.0-3.0); HEMATOCRIT 29.3 % (37.0-47.0); HEMOGLOBIN 9.3 G/DL (12.0-16.0); MEAN CORPUSCULAR VOLUME 94 FL (80-99); MONOCYTES % (AUTO) 19.8 % (1.0-10.0); NEUTROPHILS % (AUTO) 43.6 % (45.0-75.0); PLATELET COUNT 287 K/UL (150-450); RED BLOOD COUNT 3.11 M/UL (4.20-5.40); RED CELL DISTRIBUTION WIDTH 25.4 % (11.6-14.8); WHITE BLOOD COUNT 4.1 K/UL (4.8-10.8)
[2020-06-22 07:18] LABS: ANION GAP 11 mmol/L (5-15); BLOOD UREA NITROGEN 6 mg/dL (7-18); CALCIUM 8.2 MG/DL (8.5-10.1); CARBON DIOXIDE 24 MMOL/L (21-32); CHLORIDE 109 MMOL/L (98-107); CREATININE 0.6 MG/DL (0.55-1.30); POTASSIUM 3.6 MMOL/L (3.5-5.1); SODIUM 144 MMOL/L (136-145)
[2020-06-22 08:00] VITALS: BP 134/79
[2020-06-22] MEDS: Docusate 100mg cap ORAL SCH ×2 (08:18→12:43)
[2020-06-22] MEDS: Heparin 5000 units/ml inj SUBQ SCH (08:20)
--- NOTE | 2020-06-22 11:22 | Nephrology Progress Note ---
Assessment/Plan Problem List: (1) Hyponatremia (2) New onset seizure (3) Anemia Assessment Hyponatremia, improving Seizure disorder Anemia Plan June 22: Renal parameters stable. Hemoglobin higher today at 9.3. Was transfused yesterday. Stable electrolytes. Continue per current management. June 21: Renal parameters stable. Hemoglobin lower. Due for transfusion. Serum sodium stable. Continue per PMD and consultants. Remains stable from renal standpoint of view. Serum sodium 144. Previously: Urine studies including urine osmolality and urine for tox screen Normal saline infusion Check uric acid TSH Anemia work-up, suggests a low iron and low B12 level. Will give IV iron and subcu B12 Subjective ROS Limited/Unobtainable: No Constitutional: Reports: malaise Objective Objective Last 24 Hour Vital Signs Date Time Temp Pulse Resp B/P (MAP) Pulse Ox O2 Delivery O2 Flow Rate FiO2 06/22/20 09:00 Room Air 06/22/20 08:18 71 134/79 06/22/20 08:00 98.6 71 17 134/79 (97) 97 06/22/20 06:13 97.9 06/22/20 04:00 97.9 72 18 117/73 (88) 96 06/22/20 00:00 97.9 86 20 119/72 (88) 97 06/21/20 21:56 98.6 06/21/20 21:00 Room Air 06/21/20 20:00 98.3 72 18 124/75 (91) 99 06/21/20 18:20 98.6 79 18 121/82 (95) 97 06/21/20 15:40 97.7 69 18 137/67 (90) 97 06/21/20 15:25 97.9 80 18 130/51 (77) 97 06/21/20 12:07 98.1 83 18 123/70 (87) 97 Intake and Output 06/21/20 06/22/20 19:00 07:00 Intake Total 800 ml 400 ml Balance 800 ml 400 ml Intake Oral 800 ml Other 400 ml # Voids 2 2 Laboratory Tests 06/22/20 05:40: White Blood Count 4.1L, Red Blood Count 3.11L, Hemoglobin 9.3L, Hematocrit 29.3L , Mean Corpuscular Volume 94, Mean Corpuscular Hemoglobin 29.9, Mean Corpuscular Hemoglobin Concent 31.7L, Red Cell Distribution Width 25.4H, Platelet Count 287, Mean Platelet Volume 5.4L, Neutrophils (%) (Auto) 43.6L, Lymphocytes (%) (Auto) 34.0, Monocytes (%) (Auto) 19.8H, Eosinophils (%) (Auto) 1.1, Basophils (%) (Auto) 1.4, Sodium Level 144, Potassium Level 3.6, Chloride Level 109H, Carbon Dioxide Level 24, Anion Gap 11, Blood Urea Nitrogen 6L, Creatinine 0.6, Estimat Glomerular Filtration Rate > 60, Glucose Level 81, Calcium Level 8.2L Height (Feet): 5 Height (Inches): 7.00 Weight (Pounds): 162 General Appearance: no apparent distress Cardiovascular: normal rate Respiratory/Chest: decreased breath sounds Abdomen: soft Objective No change Jose Miguel Villa MD Jun 22, 2020 11:22
[2020-06-22 11:56] VITALS: BP 129/51
[2020-06-22] MEDS ORDERED: FAMOTIDINE20 MG ORAL (14:10)
[2020-06-22] MEDS ORDERED: ATENOLOL50 MG ORAL (14:10)
--- NOTE | 2020-06-22 14:11 | Pulmonology Progress Note ---
Subjective ROS Limited/Unobtainable: No Constitutional: Reports: no symptoms HEENT: Repors: no symptoms Respiratory: Reports: no symptoms Allergies: Coded Allergies: ASPIRIN (Verified Allergy, Unknown, 08/20/10) CODEINE (Verified Allergy, Unknown, 08/20/10) PENICILLINS (Verified Allergy, Unknown, 08/20/10) Objective Last 24 Hour Vital Signs Date Time Temp Pulse Resp B/P (MAP) Pulse Ox O2 Delivery O2 Flow Rate FiO2 06/22/20 11:56 98.0 67 17 129/51 (77) 95 06/22/20 09:00 Room Air 06/22/20 08:18 71 134/79 06/22/20 08:00 98.6 71 17 134/79 (97) 97 06/22/20 06:13 97.9 06/22/20 04:00 97.9 72 18 117/73 (88) 96 06/22/20 00:00 97.9 86 20 119/72 (88) 97 06/21/20 21:56 98.6 06/21/20 21:00 Room Air 06/21/20 20:00 98.3 72 18 124/75 (91) 99 06/21/20 18:20 98.6 79 18 121/82 (95) 97 06/21/20 15:40 97.7 69 18 137/67 (90) 97 06/21/20 15:25 97.9 80 18 130/51 (77) 97 Intake and Output 06/21/20 06/22/20 19:00 07:00 Intake Total 800 ml 400 ml Balance 800 ml 400 ml Intake Oral 800 ml Other 400 ml # Voids 2 2 General Appearance: WD/WN HEENT: normocephalic, atraumatic Respiratory: lungs clear, normal breath sounds Breasts: no masses Cardiovascular: regular rhythm Abdomen: normal bowel sounds, soft, non tender Genitourinary: normal external genitalia Extremities: no clubbing Skin: no rash Laboratory Tests 06/22/20 05:40: White Blood Count 4.1L, Red Blood Count 3.11L, Hemoglobin 9.3L, Hematocrit 29.3L , Mean Corpuscular Volume 94, Mean Corpuscular Hemoglobin 29.9, Mean Corpuscular Hemoglobin Concent 31.7L, Red Cell Distribution Width 25.4H, Platelet Count 287, Mean Platelet Volume 5.4L, Neutrophils (%) (Auto) 43.6L, Lymphocytes (%) (Auto) 34.0, Monocytes (%) (Auto) 19.8H, Eosinophils (%) (Auto) 1.1, Basophils (%) (Auto) 1.4, Sodium Level 144, Potassium Level 3.6, Chloride Level 109H, Carbon Dioxide Level 24, Anion Gap 11, Blood Urea Nitrogen 6L, Creatinine 0.6, Estimat Glomerular Filtration Rate > 60, Glucose Level 81, Calcium Level 8.2L Current Medications Medications (Trade) Dose Ordered Sig/Becky Route PRN Reason Start Time Stop Time Status Last Admin Dose Admin Acetaminophen (Tylenol) 650 mg Q4H PRN ORAL Temp >100.5 06/14/20 13:45 07/14/20 13:44 Acetaminophen (Tylenol) 650 mg Q6H PRN ORAL headache & mild pain 06/14/20 14:00 07/14/20 09:59 06/16/20 17:28 Atenolol (Tenormin) 100 mg DAILY ORAL 06/14/20 14:45 07/14/20 14:44 06/22/20 08:18 Diphenhydramine HCl (Benadryl) 25 mg Q6H PRN ORAL Itching/Pruritis 06/14/20 13:45 07/14/20 13:44 Docusate Sodium (Colace) 100 mg THREE TIMES A DAY ORAL 06/16/20 18:00 07/16/20 17:59 06/22/20 12:43 Famotidine (Pepcid) 20 mg BID ORAL 06/14/20 18:00 09/12/20 17:59 06/22/20 08:18 Gadobutrol (Gadavist) 7.5 mmol NOW PRN IV Radiology Procedure 06/20/20 09:45 06/24/20 09:44 Heparin Sodium (Porcine) (Heparin 5000 units/ml) 5,000 units EVERY 12 HOURS SUBQ 06/14/20 11:00 07/29/20 10:59 06/22/20 08:20 Loperamide HCl (Imodium) 4 mg Q4H PRN ORAL Diarrhea 06/14/20 13:45 07/14/20 13:44 Lorazepam (Ativan 2mg/ml 1ml) 0.5 mg Q4H PRN IV For Anxiety 06/20/20 18:20 06/27/20 18:19 Lorazepam (Ativan 2mg/ml 1ml) 1 mg Q4H PRN IV seizures 06/20/20 18:30 06/27/20 18:29 Morphine Sulfate (Morphine Sulfate) 2 mg Q6H PRN IVP Moderate Pain (Pain Scale 4-6) 06/20/20 21:40 06/27/20 21:39 06/22/20 13:07 Nitroglycerin (Ntg) 0.4 mg Q5M PRN SL Prn Chest Pain 06/14/20 13:45 07/14/20 13:44 Ondansetron HCl (Zofran) 4 mg Q6H PRN IVP Nausea & Vomiting 06/14/20 13:45 07/14/20 13:44 06/14/20 17:06 Pantoprazole (Protonix) 40 mg DAILY ORAL 06/20/20 09:00 07/20/20 08:59 06/22/20 08:18 Polyethylene Glycol (Miralax) 17 gm DAILYPRN PRN ORAL Constipation 06/14/20 13:45 07/14/20 13:44 Temazepam (Restoril) 15 mg HSPRN PRN ORAL Insomnia 06/20/20 18:15 06/27/20 18:14 06/21/20 23:16 Assessment/Plan Problems: (1) New onset seizure (2) Acute encephalopathy (3) Hyponatremia (4) Anemia Assessment/Plan s/p prbc one unit yesterday, h/h better feels better today Na is normal now seizure precaution neuro evaluation dvt prophylaxis. CT abdomen reviewed: IMPRESSION: * Postoperative changes related to prior gastric bypass. Emma Mcfarlane MD Jun 22, 2020 14:11
--- NOTE | 2020-06-22 15:00 | Electroencephalogram ---
DATE OF PROCEDURE: 06/20/2020 REQUESTING PHYSICIAN: Sami Turner MD. READING PHYSICIAN: Andre Sesay MD. HISTORY: This EEG was performed on a 64-year-old lady with a history of diabetes mellitus, gastric surgery, and a seizure. The purpose of this EEG was to evaluate the patient for ongoing ictal or interictal phenomena. TECHNICAL NOTE: This EEG was performed on a [employer] Unit with electrodes placed on the scalp according to the international 10-20 system. [id number] and [id number] montages were used. The EEG was technically satisfactory and was performed in the awake, drowsy, and sleep states. OBSERVATIONS: In the best awake state, the background activity consisted of 9 to 9.5 hertz posteriorly predominant well-developed alpha waveforms, which attenuated on eye opening. Drowsiness was characterized by dissolution of the alpha rhythm and appearance of slow frequencies in the 6 to 7 hertz theta range. Stage 2 sleep was characterized by further slowing of the background in the delta and theta range, the presence of vertex waves, and 14 hertz sleep spindles. No focal abnormalities or epileptiform discharges were seen. IMPRESSION: Normal awake, drowsy, and stage 2 sleep EEG. Andre Sesay M.D. DR: GERMAN JOB#: [id number] CC:
[2020-06-22 16:00] VITALS: BP 131/84
--- NOTE | 2020-06-22 17:42 | Internal Med Progress Note ---
Subjective Physician Name Orville Edward Attending Physician Orville Edward MD Allergies: Coded Allergies: ASPIRIN (Verified Allergy, Unknown, 08/20/10) CODEINE (Verified Allergy, Unknown, 08/20/10) PENICILLINS (Verified Allergy, Unknown, 08/20/10) Subjective awake, alert, responsive, denies any chest pain or shortness of breath. Objective Last Vital Signs Date Time Temp Pulse Resp B/P (MAP) Pulse Ox O2 Delivery O2 Flow Rate FiO2 06/22/20 16:00 98.0 78 17 131/84 (100) 98 06/22/20 09:00 Room Air Laboratory Tests Test 06/22/20 05:40 White Blood Count 4.1 K/UL (4.8-10.8) L Red Blood Count 3.11 M/UL (4.20-5.40) L Hemoglobin 9.3 G/DL (12.0-16.0) L Hematocrit 29.3 % (37.0-47.0) L Mean Corpuscular Volume 94 FL (80-99) Mean Corpuscular Hemoglobin 29.9 PG (27.0-31.0) Mean Corpuscular Hemoglobin Concent 31.7 G/DL (32.0-36.0) L Red Cell Distribution Width 25.4 % (11.6-14.8) H Platelet Count 287 K/UL (150-450) Mean Platelet Volume 5.4 FL (6.5-10.1) L Neutrophils (%) (Auto) 43.6 % (45.0-75.0) L Lymphocytes (%) (Auto) 34.0 % (20.0-45.0) Monocytes (%) (Auto) 19.8 % (1.0-10.0) H Eosinophils (%) (Auto) 1.1 % (0.0-3.0) Basophils (%) (Auto) 1.4 % (0.0-2.0) Sodium Level 144 MMOL/L (136-145) Potassium Level 3.6 MMOL/L (3.5-5.1) Chloride Level 109 MMOL/L (98-107) H Carbon Dioxide Level 24 MMOL/L (21-32) Anion Gap 11 mmol/L (5-15) Blood Urea Nitrogen 6 mg/dL (7-18) L Creatinine 0.6 MG/DL (0.55-1.30) Estimat Glomerular Filtration Rate > 60 mL/min (>60) Glucose Level 81 MG/DL (74-106) Calcium Level 8.2 MG/DL (8.5-10.1) L Intake and Output 06/21/20 06/22/20 19:00 07:00 Intake Total 800 ml 400 ml Balance 800 ml 400 ml Intake Oral 800 ml Other 400 ml # Voids 2 2 Objective General: No acute distress, awake and alert HEENT: NCAT, sclera anicteric, PERRL, EOMI. Neck: Supple, no significant jugular venous distention, Lungs: Good inspiratory effort, no accessory muscle use, clear to auscultation bilaterally, no Wheeze or Rales. Heart: Regular rate and rhythm, normal S1/S2, no murmurs/gallops Abdomen: soft, generalized tenderness, nondistended. Normoactive bowel sounds. / Rectal: Refused and deferred. Extremities: No Cyanosis , clubbing or edema. Neuro: A&O x 3, Able to move all extremities Skin: warm, no rashes or lesions Psych: Normal mood and affect Assessment/Plan Assessment/Plan 1. New-onset seizure. 2. Hyponatremia. 3. iron deficiency anemia. 4. Pancytopenia. 5. Generalized abdominal tenderness. TREATMENT: 1. New-onset seizure. ?due to hyponatremia? Patient has been placed empirically on intravenous lorazepam for seizure. An initial phenytoin level was negative. A Neurology consultation has been obtained with Dr. Turner. 2. Hyponatremia. ?dyazide diuretic vs SIADH? Reason for hyponatremia is unknown. Patient has been started empirically on normal saline and KCL intravenously. We will follow recommendations of Nephrology, Dr. Villa. 3. Anemia GI=Dr Abebe. GI workup in progress. Continue IV venofer and B12 4. CT chest result= no evidence of malignancy 5. MRI brain result=no acute findings discharge home today, Follow up with her primary physician within one week. Orville Edward MD Jun 22, 2020 17:42
--- NOTE | 2020-06-22 18:24 | General Progress Note ---
Subjective Allergies: Coded Allergies: ASPIRIN (Verified Allergy, Unknown, 08/20/10) CODEINE (Verified Allergy, Unknown, 08/20/10) PENICILLINS (Verified Allergy, Unknown, 08/20/10) Subjective Feels OK tolerating PO epigastric pain resolved for d/c today Objective Last 24 Hour Vital Signs Date Time Temp Pulse Resp B/P (MAP) Pulse Ox O2 Delivery O2 Flow Rate FiO2 06/22/20 16:00 98.0 78 17 131/84 (100) 98 06/22/20 13:37 98.0 06/22/20 11:56 98.0 67 17 129/51 (77) 95 06/22/20 09:00 Room Air 06/22/20 08:18 71 134/79 06/22/20 08:00 98.6 71 17 134/79 (97) 97 06/22/20 06:13 97.9 06/22/20 04:00 97.9 72 18 117/73 (88) 96 06/22/20 00:00 97.9 86 20 119/72 (88) 97 06/21/20 21:56 98.6 06/21/20 21:00 Room Air 06/21/20 20:00 98.3 72 18 124/75 (91) 99 Intake and Output 06/21/20 06/22/20 19:00 07:00 Intake Total 800 ml 400 ml Balance 800 ml 400 ml Intake Oral 800 ml Other 400 ml # Voids 2 2 Laboratory Tests 06/22/20 05:40: White Blood Count 4.1L, Red Blood Count 3.11L, Hemoglobin 9.3L, Hematocrit 29.3L , Mean Corpuscular Volume 94, Mean Corpuscular Hemoglobin 29.9, Mean Corpuscular Hemoglobin Concent 31.7L, Red Cell Distribution Width 25.4H, Platelet Count 287, Mean Platelet Volume 5.4L, Neutrophils (%) (Auto) 43.6L, Lymphocytes (%) (Auto) 34.0, Monocytes (%) (Auto) 19.8H, Eosinophils (%) (Auto) 1.1, Basophils (%) (Auto) 1.4, Sodium Level 144, Potassium Level 3.6, Chloride Level 109H, Carbon Dioxide Level 24, Anion Gap 11, Blood Urea Nitrogen 6L, Creatinine 0.6, Estimat Glomerular Filtration Rate > 60, Glucose Level 81, Calcium Level 8.2L Height (Feet): 5 Height (Inches): 7.00 Weight (Pounds): 162 Objective WDWN AA woman NCAT supple CTA RRR abd soft, mild epigastric TTP no edema Assessment/Plan Assessment/Plan: Assessment - Epigastric pain - improved - anemia - s/p PREETHI gastric bypass - mild diverticulosis - resolved hyponatremia - seizure Recommendation - po as tolerated - acid blockade - EGD as outpatient Lee Abebe MD Jun 22, 2020 18:24
--- NOTE | 2020-06-24 16:32 | Discharge Summary ---
Discharge Summary Discharge Summary _ DATE OF ADMISSION: 06/14/2020 DATE OF DISCHARGE: 06/22/2020 ADMITTING MD: Dr. Orville Edward DISCHARGED BY: Dr. Emma Mcfarlane CONSULTANTS: Dr. Emma Turner [facility] COURSE: Patient is a 64-year-old -[place] female who presented with chief complaint of seizure. Patient denies any medical history. Patient apparently had an unwitnessed seizure, which occurred while patient was watching TV. She initially presented to [facility] emergency room. She was transferred to [facility] for insurance purposes. CT of the brain was reported as no acute mass or hemorrhage. Labs revealed WBC of 3.8. Hemoglobin 10.5, hematocrit 32, platelet 118,000. Sodium 120, potassium 3.8, chloride 84, CO2 18, BUN 3, creatinine 0.73, glucose 149. She was then admitted for new onset seizure and hyponatremia. She was placed on seizure precautions and neuro checks. She was placed empirically on intravenous lorazepam for seizure. Initial phenytoin level was negative. Reason for hyponatremia was unknown. She was given normal saline intravenously. She also showed anemia and was started on Venofer. Anemia work-up showed low iron and low vitamin B12. She was given subcutaneous B12 injections. She was given IV iron. Patient is status post Iban-en-Y gastric bypass surgery, expected to have some degree of iron deficiency due to iron malabsorption. Patient also complained of abdominal pain. She was recommended to have endoscopy that can be done as an outpatient. She was given proton pump inhibitors. Stool OB was negative. Sodium level eventually normalized. Random urine was normal. Urine osmolality was 151. TSH was normal. CT of the chest, abdomen and pelvis showed postoperative changes related to prior gastric bypass. Small hiatal hernia. Thickening of distal esophagus. Hepatic and renal cysts. Status post cholecystectomy. Diverticulosis without evidence of diverticulitis. Nonspecific prominence and the tip of appendix. Small fat-containing umbilical and supraumbilical ventral hernia. There was no evidence of malignancy. Neuro evaluation was done. On the morning of 06/14/2020, she was found by her d daniela to have "eyes fluttering". The patient cannot give any further history. When she awoke, she was confused. There was no generalized tonic-clonic activity. Urine drug screen was negative. Seizure was probably reactive due to hyponatremia related to diuretic use. Brain MRI did not show any acute intracranial abnormality. EEG was in normal awake, drowsy and stage 2 sleep. No focal abnormalities or epileptiform discharges were seen. Hemoglobin dropped to 7.7 and hematocrit 24.6. He was transfused 1 unit packed RBC. Blood levels were stable posttransfusion. There were no recurrence of seizure. Patient was cleared for discharge, to follow-up PCP in a week. FINAL DIAGNOSES: New onset seizure possibly due to hyponatremia Hyponatremia possibly secondary to diuretic use Acute encephalopathy Iron deficiency anemia Status post bypass surgery Mild diverticulosis Drop in hemoglobin requiring blood transfusion DISPOSITION: Patient was discharged home. DISCHARGE MEDICATIONS: Refer to Discharge Medication List. DISCHARGE INSTRUCTIONS: Follow-up with PCP in a week. I have been assigned to complete a discharge summary on this account, I was not involved with the patient's management.--JOHNNY Felipe Jacqueline Robles NP Jun 24, 2020 16:32
== END 2020-06-22 16:03 | disposition home or self-care (01) | DRG 101 ==
LOC: 4E 09:01
PROC: 30233N1 Transfusion of Nonautologous Red Blood Cells into Peripheral Vein, Percutaneous Approach (ICD-10-PCS; principal; 2020-06-21)
DX: R56.9 Unspecified convulsions (principal); E87.1 Hypo-osmolality and hyponatremia; D61.818 Other pancytopenia; G93.40 Encephalopathy, unspecified; D50.9 Iron deficiency anemia, unspecified; Z88.6 Allergy status to analgesic agent; Z88.0 Allergy status to penicillin; T50.2X5A Adverse effect of carbonic-anhydrase inhibitors, benzothiadiazides and other diuretics, initial encounter; Y92.009 Unspecified place in unspecified non-institutional (private) residence as the place of occurrence of the external cause; K57.90 Diverticulosis of intestine, part unspecified, without perforation or abscess without bleeding; Z98.84 Bariatric surgery status; E11.9 Type 2 diabetes mellitus without complications; E78.5 Hyperlipidemia, unspecified; H91.90 Unspecified hearing loss, unspecified ear; I10 Essential (primary) hypertension; R10.13 Epigastric pain
CPT/HCPCS: 36415; 70470; 70553; 71045; 71260; 74160; 74177; 80048; 80053; 80307; 81001; 82270; 82378; 82533; 82607; 82728; 82746; 82962; 83036; 83540; 83550; 83615; 83735; 83880; 83930; 83935; 84100; 84300; 84439; 84443; 84481; 84484; 84550; 85007; 85025; 85044; 85060; 85610; 85651; 85730; 86140; 86850; 86900; 86901; 86920; 87081; 95819; A9585; J2405; J8499; U0002